=== PATIENT | male | born 1935 | race Caucasian/White ===

== ENCOUNTER 2019-10-09 11:19 | Emergency (ER) | payer MEDICARE, SELFPAY ==
[2019-10-09 11:33] VITALS: BP 147/77; PULSE 112; RESP 24; TEMP 36.9; O2SAT 93
--- NOTE | 2019-10-09 12:02 | PC.NURSE ---
pt came to desk, stated that he has to leave, cant wait two hours. pt encouraged many times to stay and be evaluated. again refused. pt did say that he would come back this evening, and be prepared to stay if needed left ed waiting room at 1200
--- NOTE | 2019-10-13 12:36 | PM.PNCARD ---
Progress Note: A&P Assessment and Plan (1) Atrial fibrillation with rapid ventricular response: Code(s): I48.91 - Unspecified atrial fibrillation Status: Acute Assessment and Plan: Now that he is more awake and alert he stated that he sees Dr. Mccabe as her regular hvac refrigeration technician, will have a follow-up with him for regular cardiac care (2) CHF (congestive heart failure): Code(s): I50.9 - Heart failure, unspecified Status: Acute Subjective Date/time seen: 10/13/19 12:36 He feels okay today, no more arrhythmia no more shortness of breath leg swelling is better hand swelling is much better. Now that he is more awake and alert he stated that he sees Dr. Mccabe as her regular hvac refrigeration technician, will have a follow-up with him for regular cardiac care
== END 2019-10-09 12:02 | disposition left against medical advice (07) ==
LOC: ANHED 12:14
PROVIDERS: PCP Family Medicine
DX: M79.632 Pain in left forearm (principal)
CPT/HCPCS: 99199

== ENCOUNTER 2019-10-10 09:23 | Inpatient (IN) | payer MEDICARE, SELFPAY ==
[2019-10-10] VITALS (11 sets, daily range): BP systolic 128–154; BP diastolic 69–91; PULSE 85–115; RESP 18–30; TEMP 36–36.7; O2SAT 92–99; BMI 25.0
--- NOTE | 2019-10-10 | ECHO_ITS ---
Patient Info Name: Jonatan Queen Age: 84 years : 1935 Gender: Male Ht: 71 in Wt: 186 lbs BSA: 2.07 m2 HR: 118 bpm BP: 128 / 70 mmHg Technical Quality: Fair Exam Date: 10/10/2019 1:43 PM Exam Location: [facility] Pulmonary Exam Room: ER [facility] Patient Status: Emergency Admit Date: 10/10/2019 Staff Ordering Physician: Alfonso Barrios DO Health Worker: Carol Tarango RDCS Attending Provider: Alfonso Barrios DO Exam Type: CA echo dop color flow w con Study Info Indications - CHF Complete two-dimensional, color flow and Doppler transthoracic echocardiogram is performed with contrast to opacify the left ventrical and to improve the deliniation of the left ventrical endocarial boarders. Contrast/Agitated Saline Contrast/Ag. Saline: Definity Amount: 2.00 ml Administered By: Sosa Newberry RN Existing IV Access: Yes IV Access Condition: patent with no signs of infiltration Summary 1. Left ventricular systolic function is normal, estimated at 60-65%. 2. Right ventricular chamber dimension is mildly enlarged. Left Ventricle Left ventricular chamber dimension is normal. Left ventricular systolic function is normal, estimated at 60-65%. There is no increased left ventricular wall thickness. The left ventricular diastolic function is normal. Right Ventricle Right ventricular chamber dimension is mildly enlarged. Right ventricular systolic function is normal. Left Atria Left atrial chamber dimension is mildly enlarged. Right Atria Right atrial chamber dimension is normal. Aortic Valve The aortic valve is trileaflet. There is no aortic valve stenosis. There is no aortic valve regurgitation. Mitral Valve The mitral valve has normal leaflets. There is no mitral valve stenosis. There is trace mitral valve regurgitation. Tricuspid Valve Mild centrally directed tricuspid valve regurgitation no hepatic venous systolic flow reversal by Doppler interrogation. Pericardium/Pleural The pericardium appears normal. There is no pericardial effusion. Left Ventricular Outflow Tract Name Value Normal LVOT 2D LVOT Diameter 2.02 cm LVOT Doppler LVOT Peak Gradient 5 mmHg LVOT Mean Gradient 3 mmHg LVOT VTI 19.06 cm LVOT VTI/AV VTI Ratio 0.85 LVOT Stroke Volume 61.07 ml LVOT CO 14.42 l/min LVOT CI 6.98 L/min/m2 Pulmonic Valve Name Value Normal PV Doppler PV Peak Gradient 4 mmHg Mitral Valve Name Value Normal
--- NOTE | ~2019-10-10 | XR_ITS ---
EXAMINATION: XR hand LT min 3V DATE: 10/10/2019 10:21 INDICATION: Left hand pain. TECHNIQUE: 3 views of left hand were obtained. COMPARISON: None. FINDINGS: Bone alignment is normal. No fracture. There is mild osteoarthritis of second and third met acarpophalangeal joints, first interphalangeal joint, and fourth distal interphalangeal joint. IMPRESSION: 1. Mild polyarticular osteoarthritis. Reviewed, dictated and finalized at location A. ZZA DEVELOPER
--- NOTE | ~2019-10-10 | XR_ITS ---
XR chest 2V DATE: 10/10/2019 10:21 INDICATION: Shortness of breath. Left hand pain and swelling. TECHNIQUE: AP and lateral views COMPARISON: 03/15/2016 2 view chest FINDINGS: Mild right pleural effusion and slight left pleural effusion. There is right basilar infilt rate and/or atelectasis. Bilateral hyperinflation. There is mild prominence of the fissures. Mild cardiomegaly. There is aortic calcification and minimal unfolding. These osteopenia. Degenerative spurring of the thoracic spine. IMPRESSION: Mild cardiomegaly, mild congestive changes Right basilar infiltrate and/atelectasis Aortic atherosclerosis Diffuse osteopenia. Degenerative change of the thoracic spine. Reviewed, dictated and finalized at location B. MOTIVE PARTS PERSON
--- NOTE | 2019-10-10 09:50 | ECG_ITS ---
Measurements Intervals [place] Rate: 136 P: [place]: 0 QRS: -6 QRSD: 100 T: 14 QT: 305 QTc: 460 Interpretive Statements ATRIAL FIBRILLATION WITH RAPID VENTRICULAR RESPONSE BORDERLINE R WAVE PROGRESSION, ANTERIOR LEADS ABNORMAL ECG Electronically Signed On 10-10-2019 11:54:27 FINANCIAL PLANNER by Zeke Stratton D.O.
[2019-10-10 10:00] LABS: Basophils Percent Auto 0.2 % (0.2-1.2); Eosinophils Percent Auto 0.1 % (0-4.4); Hemoglobin 16.6 g/dL (14.0-18.0); Immature Granulocyte Absolute 0.27 K/mm3 (0.00-0.031); Immature Granulocyte Percent A 1.8 % (0-0.5); Lymphocytes Absolute Auto 0.64 K/mm3 (0.9-3.2); Lymphocytes Percent Auto 4.3 % (18.3-44.2); Mean Corpuscular HGB Conc 33.9 g/dl (32-36); Mean Corpuscular Hemoglobin 33.1 pg (26-34); Mean Corpuscular Volume 97.6 fl (80-100); Mean Platelet Volume 11.4 fl (7.4-10.4); Monocytes Absolute Auto 0.9 K/mm3 (0.1-0.6); Monocytes Percent Auto 6.2 % (2.6-8.5); Neutrophils Absolute Auto 12.9 K/mm3 (1.3-6.7); Neutrophils Percent Auto 87.4 % (45.5-73.1); Platelet Count Result 196 k/mm3 (150-375); Red Blood Count 5.02 M/mm3 (4.6-6.20); Red Cell Distribution Width 16.1 % (11.5-14.5); White Blood Count 14.8 K/mm3 (4.5-10.0)
[2019-10-10 10:12] LABS: Blood Urea Nitrogen 70 mg/dL (9-20); Calcium 9.1 mg/dL (8.4-10.2); Carbon Dioxide 28 mmol/L (22-30); Chloride 92 mmol/L (98-107); Estimated CRCL calculation 29 ml/min; Estimated Glomerular Filt Rate 34; Glucose 145 mg/dL (75-110); Potassium 3.8 mmol/L (3.4-5.0); Sodium 137 mmol/L (137-145)
--- NOTE | 2019-10-10 11:06 | ED.GENADULT ---
HPI - General Adult General Chief complaint: Unspecified Stated complaint: left hand pain Time Seen by Provider: 10/10/19 11:00 Source: patient Mode of arrival: ambulatory Limitations: no limitations History of Present Illness HPI narrative: Pt is an 84 y/o male who presents to the ED with c/o lt arm burning pain x5 days. He reports associated swelling and a rash down his lt arm. Pt also notes that he is SOB and states that he was D/C from [facility] on Sunday (1 week ago) after being admitted for 5 days for pneumonia. He notes that he was on Abx while he was admitted. complaint: left arm pain Onset (ago): day(s) (5) Location: left and upper extremity Quality: burning Pain Consistency: constant Associated symptoms: shortness of breath and other (lt arm swelling) Related Data Allergies Allergy/AdvReac Type Severity Reaction Status Date / Time No Known Drug Allergies Allergy Unknown Verified 08/06/18 12:54 Review of Systems Review of Systems: All systems reviewed & are unremarkable except as noted in HPI and below Respiratory: Respiratory: Reports dyspnea Musculoskeletal: Musculoskeletal: Reports other (lt arm pain, lt arm swelling) [facility] Past Medical History Medical History (Updated 10/10/19 @ 16:48 by Alfonso Barrios DO) Arm fracture GERD (gastroesophageal reflux disease) HLD (hyperlipidemia) HTN (hypertension) Rectal polyp Shingles Sleep apnea Surgical History Surgical History (Updated 10/10/19 @ 11:16 by Curtis Pritchett) H/O bilateral cataract extraction H/O heart artery stent History of back surgery History of cardiac catheterization Hx of cholecystectomy Family History Family History (Updated 08/12/18 @ 15:24 by DOCTOR UNKNOWN) Father Family history of lung disease, Onset Age: 66 Other Family history of osteoporosis Social History Social History Smoking status: Never smoker Alcohol intake: never Exam Narrative: Exam Narrative: APPEARANCE: No acute distress, nontoxic, resting in bed EYES: EOMI HEENT: Normocephalic, atraumatic, OMM RESPIRATORY: Mild respiratory distress coarse breath sounds at the bilateral lung cowart CARDIOVASCULAR: Irregular and tachycardic without murmurs rubs or gallops. ABDOMINAL: Soft, nontender, nondistended, no rebound or guarding MUSCULOSKELETAl: Moves all extremities. No clubbing, cyanosis or edema. NEURO: Awake and alert. Following commands, speech normal, no focal deficits SKIN:: Warm, dry. Rash that begins on the lateral shoulder and travels down the lateral arm to the first and second digits with vesicles seen on the first and second digits encrusted lesions more proximal in the arm consistent with varicella-zoster and region of dermatome C6 PSYCHIATRIC: Normal affect/mood, Course Course Emergency Course: Discussed with patient and family results of workup and diagnosis. Discussed need for admission. Patient and family understand and agree to current treatment plan Consultations Consultation #1: Discussed case with Dr. Parrish, the showroom sales assistant. Recommends ordering an echo and will consult Date: 10/10/19 Time: 13:03 Consultation #2: Discussed case with TRAVIS Harris for the hospitalist. Accepted admission. Date: 10/10/19 Time: 13:10 Vital Signs Vital signs: Vital Signs Temperature 98.0 F 10/10/19 09:42 Pulse Rate 115 H 10/10/19 09:42 Respiratory Rate 26 H 10/10/19 09:42 Blood Pressure 128/70 10/10/19 09:42 Pulse Oximetry 92 10/10/19 09:42 Temperature 98.0 F 10/10/19 09:42 Pulse Rate 100 10/10/19 16:28 Respiratory Rate 20 10/10/19 16:28 Blood Pressure 135/82 10/10/19 16:28 Pulse Oximetry 98 10/10/19 16:28 Medical Decision Making Vital Signs Vital Signs: Vital Signs Temperature 98.0 F 10/10/19 09:42 Pulse Rate 115 H 10/10/19 09:42 Respiratory Rate 26 H 10/10/19 09:42 Blood Pressure 128/70 10/10/19 09:42 Pulse Oximetry
[2019-10-10] MEDS: IPRATROPIUM BR 0.02% INH SOLN 0.5 MG/2.5 ML VIAL INHALATION (11:25)
[2019-10-10] MEDS: ALBUTEROL SULFATE NEB 2.5 MG/0.5 ML INH 5 MG INHALATION (11:25)
[2019-10-10 11:48] LABS: Alveolar/Arterial O2 Gradient 6.2 mmHg; Fractional Inspired Oxygen 21 %; HCO3 ABG 21.1 mEq/l (22.0-26.0); Oxygen Content ABG 22.4 %vol (16.0-22.0); Oxygen Saturation ABG 99.3 % (95.0-100.0); PO2 ABG 125.6 mmHg (80.0-100.0); PO2 FiO2 Ratio Arterial Blood 5.98 %; Total Hemoglobin 16.5 g/dL (12.0-18.0)
[2019-10-10 11:51] LABS: Device ROOM AIR; Modified Allen's Test Pass; Site Drawn RIGHT RADIAL; pH ABG 7.766 (7.350-7.450)
[2019-10-10 11:58] LABS: INR 2.7; Partial Thromboplastin Time 27.3 SECONDS (22.3-36.8); Prothrombin Time 28.3 Seconds (11.1-14.7)
[2019-10-10 11:59] LABS: Lactic Acid Reflex 6.1 mmol/L (0.7-2.1)
[2019-10-10 12:11] LABS: NT Pro B Type Natriuretic Pept 3460 PG/ML (5-100); Troponin I 0.035 ng/mL (0.000-0.034)
[2019-10-10] MEDS: SODIUM CHLORIDE 0.9% IV 1,000 ML 999 ML IV CONT (12:30)
[2019-10-10 13:31] LABS: Salicylate < 1.0 mg/dL (2-20)
[2019-10-10 14:43] LABS: Reflex Lactic Acid Yes or No Add Lactic
[2019-10-10 15:23] LABS: Add Urine Microscopic? YES; Appearance Urine Clear (Clear); Bilirubin Urine Negative (Negative); Blood Urine 1+ (Negative); Color Urine Yellow (Yellow); Glucose Urine UA Negative (Negative); Ketones Urine Negative (Negative); Leukocyte Esterase Ur Negative LEU/UL (Negative); Mucus Urine Rare /lpf; Nitrate Urine Negative (Negative); Protein Urine 1+ mg/dL (Negative); RBC Urine 0-2 /hpf (0-2); Specific Grav Ur 1.018 (1.001-1.035); WBC Urine 0-3 /hpf
[2019-10-10 15:56] LABS: Lactic Acid 3.3 mmol/L (0.7-2.1)
--- NOTE | 2019-10-10 15:58 | PM.CNCAR ---
Assessment and Plan Assessment and plan (1) A-fib: Code(s): I48.91 - Unspecified atrial fibrillation Status: Acute Assessment and Plan: Patient appears to be in AFib [place] RVR. His cattle Cardizem drip which will continue. He needs to be on heparin drip for anticoagulation. She will benefit from ECHO to evaluate LV function. Monitor on telemetry (2) HLD (hyperlipidemia): Code(s): E78.5 - Hyperlipidemia, unspecified Status: Acute Assessment and Plan: Will check lipids. Continue statins. (3) HTN (hypertension): Code(s): I10 - Essential (primary) hypertension Status: Acute Assessment and Plan: Current relatively well controlled. Continue medications (4) SOB (shortness of breath) on exertion: Code(s): R06.02 - Shortness of breath Status: Acute Assessment and Plan: Patient's history are COPD and a recent history of pneumonia. Management per primary care doctor. Thank you for consult will follow up History of Present Illness History of Present Illness Consult date/time: 10/10/19 15:58 Mr. Carrasquillo is a pleasant 84 WM with past medical history of hypertension hyperlipidemia, GERD who presented to [facility] ER complaining full left hand pain. patient claims that he was diagnosed with herpes zoster and she has pain of his fingers of the left hand. While in the ER patient stated that he does have shortness of breath for a long period of time. He was diagnosed with pneumonia about 2 weeks ago at [facility] was treated with antibiotics for that reason. Patient does follow with fertilizing machine operator for that reason. He denies any chest pain no palpitation dizziness or syncopal episode no lower extremity edema. Patient was seen and examined while in the ER. Case was discussed with ER physician and patient's nurse. Reason For Visit: left hand pain Review of Systems Review of Systems: All systems reviewed & are unremarkable except as noted in HPI and below Constitutional: Constitutional: Reports as per HPI Eyes: Eyes: Reports as per HPI ENT: Reports system reviewed and no additional complaints, except as documented and Reports as per HPI Cardiovascular: Cardiovascular: Reports as per HPI Respiratory: Respiratory: Reports as per HPI Gastrointestinal: Gastrointestinal: Reports as per HPI Genitourinary: Genitourinary: Reports as per HPI Musculoskeletal: Musculoskeletal: Reports as per HPI [facility] Past Medical History Medical History (Updated 10/10/19 @ 16:05 by Hayden Frausto MD) Arm fracture GERD (gastroesophageal reflux disease) HLD (hyperlipidemia) HTN (hypertension) Rectal polyp Shingles Sleep apnea Surgical History Surgical History (Updated 10/10/19 @ 11:16 by Curtis Pritchett) H/O bilateral cataract extraction H/O heart artery stent History of back surgery History of cardiac catheterization Hx of cholecystectomy Family History Family History (Updated 08/12/18 @ 15:24 by DOCTOR UNKNOWN) Father Family history of lung disease, Onset Age: 66 Other Family history of osteoporosis Social History Social History Smoking status: Never smoker Alcohol intake: never Meds Home Medications and Allergies Allergies Allergy/AdvReac Type Severity Reaction Status Date / Time No Known Drug Allergies Allergy Unknown Verified 08/06/18 12:54 Vital Signs Vital Signs - 24 hr 10/10/19 09:42 10/10/19 11:35 10/10/19 11:50 Temperature 36.7 C Pulse Rate 115 H 110 H 115 H Respiratory Rate 26 H 30 H 30 H Blood Pressure 128/70 Pulse Oximetry 92 Exam Const: General: alert and awake; No acute distress HENMT: Head: normal to inspection and atraumatic Ears: hearing grossly normal bilaterally Face and sinus: normal facial exam Eyes: General: appearance normal, both eyes and all related structures Pupils: Equal, round and reactive pupils present EOM
[2019-10-10] MEDS: ACYCLOVIR 400 MG TABLET 800 MG PO ×2 (16:30→21:03)
[2019-10-10 16:53] LABS: Troponin I 0.022 ng/mL (0.000-0.034)
[2019-10-10 18:16] LABS: Troponin I 0.023 ng/mL (0.000-0.034)
[2019-10-10] MEDS: PERFLUTREN LIPID MICROSPHERES 1.5 ML VIAL DILUTED TO 10 ML TOTAL VOLUME (18:25)
[2019-10-10] MEDS: SODIUM CHLORIDE 0.9% IV 1,000 ML 125 ML IV CONT (18:34)
--- NOTE | 2019-10-10 18:51 | ADMGEN ---
This patient, Jonatan Queen, was admitted to IMU Room 231-01 at 1647. Patient/family oriented to hospital policies and general routines including ID bracelet, bed and alarms, visiting hours, pain management, procedures, bathroom and other care routines, personal items, smoking policy, room service/diet, and visiting hours. Valuables list has been completed. Information on how to activate the Rapid Response Team has been discussed. Patient/Family are encouraged to report perceived risks to care and to ask questions if they do not understand what they are told or what they should do.
--- NOTE | 2019-10-10 20:43 | PM.IMHP ---
H&P: HPI History of Present Illness Chief complaint: Left arm pain, shortness of breath Narrative: Jonatan Queen is a 84 year old male with a past medical history of chronic atrial fibrillation, COPD and chronic kidney disease who presented to the ER from home due to left arm pain and swelling as well as worsening shortness of breath. The patient reports that he was at [facility] one week ago after being admitted for 5 days for COPD. He reports he actually did not have pneumonia that was documented in the ER note. He states he did not receive antibiotics at [facility]. He reported he has been persistently short of breath since his return home. He has not been having palpitations or racing of his heart but when he arrived to the ER in AFib with rapid ventricular response with a heart rate as high as 136 documented on EKG. He denies any chest pain. He has been having a nonproductive cough. He denies any fevers, chills, nausea, vomiting. He has noticed a rash to the back of his left arm that is burning and aching in nature with a pain intensity that moderate to severe but is now improved and is only minor. He has noticed increased swelling in the left hand and arm. He reports that the pains and swelling in his arm started 5 days ago. He denies any dysuria changes in urinary frequency or changes in bowel habits. He is on chronic anticoagulation with Coumadin but denies any hematuria hematochezia or melena. He denies having missed any doses of his home medications. He reports that his mouth feels as if it has sand paper and it. Review of Systems Review of Systems: Narrative: Except as documented in the HPI, all other systems were reviewed and are negative. [facility] Past Medical History Medical History (Updated 10/11/19 @ 00:57 by Destiny Paulson DO) Arm fracture In childhood Atrial fibrillation On chronic anticoagulation with Coumadin echocardiogram June 2017 demonstrating EF of 60-65%, moderate biatrial enlargement, normal RVSP of 32, mild mitral, pulmonic and tricuspid regurgitation Chronic kidney disease, stage III (moderate) With baseline creatinine I.3-1.4 COPD with emphysema PFTs June 2017 demonstrated mild to moderate obstructive ventilatory defect without bronchodilator response and mildly decreased DLCO Dyslipidemia Esophageal web Noted on EGD June [address] Lomas Essential hypertension GERD (gastroesophageal reflux disease) Obstructive sleep apnea Polysomnogram 07/2017 with CPAP of 7 non adherent to CPAP therapy Shingles Surgical History Surgical History (Updated 10/10/19 @ 20:58 by Destiny Paulson DO) H/O colonoscopy with polypectomy H/O heart artery stent History of back surgery Lumbar spine History of cardiac catheterization Hx of cholecystectomy Hx of nasal polypectomy With bilateral anterior and posterior ethmoid and maxillary antrostomy June [address] Dr. Mayfield Status post cataract extraction of both eyes with insertion of intraocular lens Family History Family History Father Lung disease Mother Osteoporosis Social History Social History (Updated 10/11/19 @ 00:52 by Destiny Paulson DO) Social History: Code status: DNR per patient request Primary care physician: Dr. Lyle Collazo Smoking packs per day: 1 Smoking cigarettes per day: 20.0 Years smoked: 50 Smoking pack-years: 50.00 Smoking status: Former smoker Tobacco type: cigarettes Alcohol intake: current Drinks per week: 14 Alcohol use details: He reports that he drinks a couple of alcoholic beverages every couple of days. Substance use: never Living arrangements: alone Additional living arrangements comments: He lives alone and is not . Occupation/Education: retired Gender identity (if verbalized by the patient): Male Spiritual care concerns: No Agree to blood products: Yes
[2019-10-10 22:06] LABS: Blood Urea Nitrogen 60 mg/dL (9-20); Calcium 8.1 mg/dL (8.4-10.2); Carbon Dioxide 29 mmol/L (22-30); Chloride 97 mmol/L (98-107); Estimated CRCL calculation 34 ml/min; Estimated Glomerular Filt Rate 41; Glucose 110 mg/dL (75-110); Magnesium 1.9 mg/dL (1.6-2.3); Potassium 4.1 mmol/L (3.4-5.0); Sodium 133 mmol/L (137-145)
[2019-10-10] MEDS: METOPROLOL TARTRATE 50 MG TAB PO (23:59)
[2019-10-10] MEDS: MONTELUKAST SODIUM 10 MG TABLET PO (23:59)
[2019-10-11] VITALS (23 sets, daily range): BP systolic 101–148; BP diastolic 70–81; PULSE 64–107; RESP 18–22; TEMP 36.1–36.9; O2SAT 93–100
[2019-10-11] MEDS: SODIUM CHLORIDE 0.9% IV 1,000 ML 125 ML IV CONT ×2 (03:28→12:22)
[2019-10-11 05:20] LABS: Basophils Percent Auto 0.2 % (0.2-1.2); Eosinophils Absolute Auto 0.1 K/mm3 (0-0.3); Eosinophils Percent Auto 0.6 % (0-4.4); Hematocrit 44.3 % (42.0-52.0); Hemoglobin 14.6 g/dL (14.0-18.0); Immature Granulocyte Absolute 0.33 K/mm3 (0.00-0.031); Immature Granulocyte Percent A 2.7 % (0-0.5); Lymphocytes Absolute Auto 0.52 K/mm3 (0.9-3.2); Lymphocytes Percent Auto 4.2 % (18.3-44.2); Mean Corpuscular Hemoglobin 32.7 pg (26-34); Mean Corpuscular Volume 99.1 fl (80-100); Mean Platelet Volume 11.6 fl (7.4-10.4); Neutrophils Absolute Auto 10.5 K/mm3 (1.3-6.7); Neutrophils Percent Auto 84.3 % (45.5-73.1); Nucleated Red Blood Cells Perc 0.2 % (0.0-0.2); Platelet Count Result 170 k/mm3 (150-375); Red Blood Count 4.47 M/mm3 (4.6-6.20); Red Cell Distribution Width 16.2 % (11.5-14.5); White Blood Count 12.4 K/mm3 (4.5-10.0)
[2019-10-11 05:31] LABS: Alanine Aminotransferase 54 U/L (4-50); Albumin Level 2.7 g/dL (3.5-5.1); Alkaline Phosphatase 56 U/L (38-126); Aspartate Amino Transferase 48 U/L (17-59); Bilirubin,Total 0.9 mg/dL (0.2-1.3); Blood Urea Nitrogen 56 mg/dL (9-20); Calcium 7.9 mg/dL (8.4-10.2); Carbon Dioxide 31 mmol/L (22-30); Chloride 99 mmol/L (98-107); Estimated CRCL calculation 34 ml/min; Estimated Glomerular Filt Rate 41; Glucose 104 mg/dL (75-110); Potassium 4.3 mmol/L (3.4-5.0); Sodium 135 mmol/L (137-145)
[2019-10-11] MEDS: GABAPENTIN 100 MG CAPSULE PO ×4 (08:50→16:11)
[2019-10-11] MEDS: ESCITALOPRAM OXALATE 10 MG TABLET PO ×2 (08:51)
[2019-10-11] MEDS: METOPROLOL TARTRATE 50 MG TAB PO ×2 (08:51→20:55)
[2019-10-11] MEDS: ATORVASTATIN 40 MG TABLET PO ×2 (08:51)
[2019-10-11] MEDS: ACYCLOVIR 400 MG TABLET 800 MG PO ×5 (08:52→20:55)
[2019-10-11] MEDS: IPRATROPIUM BR 0.02% INH SOLN 0.5 MG/2.5 ML VIAL INHALATION ×3 (09:41→21:33)
[2019-10-11] MEDS: ALBUTEROL SULFATE NEB 2.5 MG/0.5 ML INH INHALATION ×3 (09:41→21:34)
--- NOTE | 2019-10-11 11:52 | PM.PNCARD ---
Progress Note: A&P Assessment and Plan (1) A-fib: Code(s): I48.91 - Unspecified atrial fibrillation Status: Deleted Assessment and Plan: Patient appears to be in AFib rate now is well controlled He needs to be on heparin drip for anticoagulation. Will start on Xarelto 20 mg p.o. daily, echocardiogram showed normal left ventricular systolic function Monitor on telemetry (2) HLD (hyperlipidemia): Code(s): E78.5 - Hyperlipidemia, unspecified Status: Inactive Assessment and Plan: Will check lipids. Continue statins. (3) HTN (hypertension): Code(s): I10 - Essential (primary) hypertension Status: Inactive Assessment and Plan: Current relatively well controlled. Continue medications (4) SOB (shortness of breath) on exertion: Code(s): R06.02 - Shortness of breath Status: Resolved Assessment and Plan: Patient's history are COPD and a recent history of pneumonia. Management per primary care doctor. Thank you for consult will follow up Subjective Date/time seen: 10/11/19 11:52 He feels better today, no chest pain, shortness breath is better, no dizziness. Rate is well controlled now Exam Const: General: alert and awake; No acute distress HENMT: Head: normal to inspection and atraumatic Ears: hearing grossly normal bilaterally Face and sinus: normal facial exam Eyes: General: appearance normal, both eyes and all related structures Pupils: Equal, round and reactive pupils present EOM: EOMs intact bilaterally Neck: Neck: normal visual inspection and no JVD Chest: Chest palpation & inspection: normal inspection of the chest (Decreased breathing sound bilaterally noted) Resp: Effort & Inspection: normal respiratory effort and no respiratory distress Auscultation: clear to auscultation bilaterally Cardio: Jugular venous distension: JVD Rhythm: abnormal rhythm irregularly irregular Heart sounds: S1 normal heart sound present and S2 normal heart sound present GI: Inspection: normal to inspection Auscultation: normal bowel sounds Skin: General skin exam: normal color Neuro: Cranial nerves: Yes Equal, round and reactive pupils present Extrem: General: normal to inspection and no clubbing, cyanosis or edema Objective Data Vital Signs Vital Signs: Vital Signs - 24 hr 10/10/19 16:28 10/10/19 16:57 10/10/19 18:00 Temperature Pulse Rate 100 115 H 100 Respiratory Rate 20 Blood Pressure 135/82 Pulse Oximetry 98 98 10/10/19 18:16 10/10/19 20:00 10/10/19 22:00 Temperature 36.0 C L 36.7 C Pulse Rate 107 H 98 85 Respiratory Rate 22 H 18 Blood Pressure 138/91 H 142/69 H Pulse Oximetry 96 96 10/10/19 23:50 10/10/19 23:59 10/11/19 00:00 Temperature 36.4 C L Pulse Rate 103 H 103 H 107 H Respiratory Rate 20 20 Blood Pressure 154/85 H Pulse Oximetry 99 99 10/11/19 02:00 10/11/19 04:00 10/11/19 05:54 Temperature 36.2 C L Pulse Rate 64 74 80 Respiratory Rate 18 Blood Pressure 101/78 Pulse Oximetry 100 10/11/19 08:00 10/11/19 08:17 10/11/19 08:51 Temperature 36.2 C L Pulse Rate 79 84 67 Respiratory Rate 22 H Blood Pressure 138/70 Pulse Oximetry 97 10/11/19 09:44 10/11/19 10:00 Temperature Pulse Rate 78 73 Respiratory Rate 20 Blood Pressure Pulse Oximetry Intake/Output Intake/Output: Intake & Output 10/08/19 10/09/19 10/10/19 10/11/19 23:59 23:59 23:59 23:59 Intake Total 1250 1360 Output Total 140 600 Balance 1110 760 Meds/Results Medications: Active Medications Generic Name Dose Route Start Last Admin Trade Name Freq PRN Reason Stop Dose Admin Hydrocodone Bitart/Acetaminophen 1 tab 10/10/19 22:39 10/11/19 00:07 Farrell 5-325 Mg PO 1 tab Q4H PRN Administration Pain Rated 4-6 Acyclovir 800 mg 10/10/19 21:00 10/11/19 08:52 Zovirax Po PO 800 mg 5 TIMES DAILY AKIN Administration Albuterol 2.5 mg 10/11/19 02:00
[2019-10-11] MEDS: WARFARIN (*PBKC) 2 MG TABLET PO (16:12)
--- NOTE | 2019-10-11 18:01 | PM.IMPN ---
Progress Note: A&P Assessment and Plan (1) Sepsis: Code(s): A41.9 - Sepsis, unspecified organism Status: Acute Assessment and Plan: Severe sepsis/septic shock sepsis criteria met on admission with tachycardia, leukocytosis and lactic acidosis however patient blood pressures remained stable. He received appropriate fluid resuscitation. LA level has normalized and tachycardia has resolved. Blood cultures are NGTD. Possibly related to the pneumonia +/- zoster. Symptoms resolving. Stop IVF. (2) Community acquired pneumonia: Code(s): J18.9 - Pneumonia, unspecified organism Status: Acute Assessment and Plan: Recent community-acquired pneumonia. Old records requested. CXR showing right basilar infiltrate with congestive changes. WBC better. Clinically patient feeling better. Continue Rocephin and azithromycin. Continue neb treatments. (3) Atrial fibrillation with rapid ventricular response: Code(s): I48.91 - Unspecified atrial fibrillation Status: Acute Assessment and Plan: Patietn with AFib/RVR. HR better controlled. Patient admitted to IMU on a Diltiazem drip. Able to stop Dilt this morning. Currently on Lopressor. INR therpaeutic. Appreciate Cardiology input. Continue daily INR. Continue tele. Stop IVF. (4) Varicella zoster: Code(s): B02.9 - Zoster without complications; B01.9 - Varicella without complication Status: Acute Assessment and Plan: Patient has been initiated on acyclovir 800 mg 5 times a day. Neurontin 100 mg t.i.d. also begun. [place] available as well for pain. (5) Acute on chronic renal failure: Code(s): N17.9 - Acute kidney failure, unspecified; N18.9 - Chronic kidney disease, unspecified Status: Acute Assessment and Plan: Cr baseline 1.3 in April. Cr was 1.9 on admission. With IVF, the Cr dropped to 1.6 today. UOP better. Stop IVF and monitor. (6) Lactic acidosis: Code(s): E87.2 - Acidosis Status: Acute Assessment and Plan: The patient received 2 L of isotonic fluids in the ER and his lactic acidosis has improved from 6.1 down to 2.0. As above Additional Plan Marked metabolic alkalosis - Salicylate level negative. Doubt PE given therapeutic INR. Anxiety? Appears improved. Monitor clinically. Weakness - will start PT/OT Subjective Date/time seen: 10/11/19 18:01 Interval history: 84yo male here for SOB and left arm pain. Patietn feels better today. Left arm pain controlled. He denies CP or palpitations today. The SOB better today. Eating okay. He is not sure if he had the Varicella vaccine. Minimal cough. Exam Narrative: Exam Narrative: Gen - NARD lying semi-recumbent in bed Chest - decreased BS R>L bases o/w distant BS. nml RR. No conversational dyspnea CV - irregularly irregular; Tele showing AFib with pauses Abd - soft, ND/NT, +BS Ext - no pedal edema Neuro - AOx4 Psych - nml mood and affect Skin - Blistering violaceous rash to the left upper extremity and in the distribution of C6 dermatome Objective Data Vital Signs Vital Signs: Vital Signs - 24 hr 10/10/19 18:16 10/10/19 20:00 10/10/19 22:00 Temperature 96.8 F L 98.0 F Pulse Rate 107 H 98 85 Respiratory Rate 22 H 18 Blood Pressure 138/91 H 142/69 H Pulse Oximetry 96 96 10/10/19 23:50 10/10/19 23:59 10/11/19 00:00 Temperature 97.5 F L Pulse Rate 103 H 103 H 107 H Respiratory Rate 20 20 Blood Pressure 154/85 H Pulse Oximetry 99 99 10/11/19 02:00 10/11/19 04:00 10/11/19 05:54 Temperature 97.2 F L Pulse Rate 64 74 80 Respiratory Rate 18 Blood Pressure 101/78 Pulse Oximetry 100 10/11/19 08:00 10/11/19 08:17 10/11/19 08:51 Temperature 97.2 F L Pulse Rate 79 84 67 Respiratory Rate 22 H Blood Pressure 138/70 Pulse Oximetry 97 10/11/19 09:44 10/11/19 10:00 10/11/19 12:00 Temperature Pulse Rate 78 73 79 Respiratory Rate
[2019-10-11] MEDS: MONTELUKAST SODIUM 10 MG TABLET PO (20:55)
[2019-10-11] MEDS: MELATONIN 3 MG TABLET PO ×2 (20:55)
[2019-10-12] VITALS (23 sets, daily range): BP systolic 106–169; BP diastolic 58–108; PULSE 77–117; RESP 18–22; TEMP 36.1–37.5; O2SAT 90–99
[2019-10-12] MEDS: ALBUTEROL SULFATE NEB 2.5 MG/0.5 ML INH INHALATION ×3 (01:37→15:12)
[2019-10-12] MEDS: IPRATROPIUM BR 0.02% INH SOLN 0.5 MG/2.5 ML VIAL INHALATION ×3 (01:38→15:12)
[2019-10-12 05:08] LABS: Mean Corpuscular HGB Conc 33.3 g/dl (32-36); Mean Corpuscular Hemoglobin 32.9 pg (26-34); Mean Corpuscular Volume 98.6 fl (80-100); Platelet Count Result 161 k/mm3 (150-375); Red Blood Count 4.87 M/mm3 (4.6-6.20); Red Cell Distribution Width 16.2 % (11.5-14.5); White Blood Count 11.6 K/mm3 (4.5-10.0)
[2019-10-12 05:17] LABS: Prothrombin Time 30.7 Seconds (11.1-14.7)
[2019-10-12 05:28] LABS: Alanine Aminotransferase 66 U/L (4-50); Albumin Level 2.9 g/dL (3.5-5.1); Alkaline Phosphatase 66 U/L (38-126); Aspartate Amino Transferase 56 U/L (17-59); Bilirubin,Total 1.2 mg/dL (0.2-1.3); Blood Urea Nitrogen 49 mg/dL (9-20); Calcium 8.1 mg/dL (8.4-10.2); Carbon Dioxide 30 mmol/L (22-30); Chloride 100 mmol/L (98-107); Estimated CRCL calculation 41 ml/min; Estimated Glomerular Filt Rate 53; Glucose 113 mg/dL (75-110); Phosphorus 2.8 mg/dL (2.5-4.5); Potassium 4.4 mmol/L (3.4-5.0); Sodium 135 mmol/L (137-145)
[2019-10-12] MEDS: METOPROLOL TARTRATE 50 MG TAB PO ×2 (09:38→20:27)
[2019-10-12] MEDS: ESCITALOPRAM OXALATE 10 MG TABLET PO (09:38)
[2019-10-12] MEDS: ACYCLOVIR 400 MG TABLET 800 MG PO ×5 (09:38→20:27)
[2019-10-12] MEDS: ATORVASTATIN 40 MG TABLET PO (09:38)
[2019-10-12] MEDS: GABAPENTIN 100 MG CAPSULE PO ×3 (09:40→17:34)
--- NOTE | 2019-10-12 11:19 | PM.PNCARD ---
Progress Note: A&P Assessment and Plan (1) A-fib: Code(s): I48.91 - Unspecified atrial fibrillation Status: Deleted Assessment and Plan: Patient appears to be in AFib rate now is well controlled He is on Coumadin, INR subtherapeutic (2) HLD (hyperlipidemia): Code(s): E78.5 - Hyperlipidemia, unspecified Status: Inactive Assessment and Plan: Will check lipids. Continue statins. (3) HTN (hypertension): Code(s): I10 - Essential (primary) hypertension Status: Inactive Assessment and Plan: Current relatively well controlled. Continue medications (4) SOB (shortness of breath) on exertion: Code(s): R06.02 - Shortness of breath Status: Resolved Assessment and Plan: Patient's history are COPD and a recent history of pneumonia. Management per primary care doctor. Thank you for consult will follow up Subjective Date/time seen: 10/12/19 11:19 Feels slightly better today, still with AFib rate is up a little bit today but no palpitation no dizziness Interval history: 84yo male here for SOB and left arm pain. Patietn feels better today. Left arm pain controlled. He denies CP or palpitations today. The SOB better today. Eating okay. He is not sure if he had the Varicella vaccine. Minimal cough. Exam Const: General: alert and awake; No acute distress HENMT: Head: normal to inspection and atraumatic Ears: hearing grossly normal bilaterally Face and sinus: normal facial exam Eyes: General: appearance normal, both eyes and all related structures Pupils: Equal, round and reactive pupils present EOM: EOMs intact bilaterally Neck: Neck: normal visual inspection and no JVD Chest: Chest palpation & inspection: normal inspection of the chest (Decreased breathing sound bilaterally noted) Resp: Effort & Inspection: normal respiratory effort and no respiratory distress Auscultation: clear to auscultation bilaterally Cardio: Jugular venous distension: JVD Rate: regular rate Rhythm: abnormal rhythm irregularly irregular Heart sounds: S1 normal heart sound present and S2 normal heart sound present GI: Inspection: normal to inspection Auscultation: normal bowel sounds Skin: General skin exam: normal color Neuro: Cranial nerves: Yes Equal, round and reactive pupils present Extrem: General: normal to inspection and no clubbing, cyanosis or edema Objective Data Vital Signs Vital Signs: Vital Signs - 24 hr 10/11/19 12:00 10/11/19 13:17 10/11/19 14:00 Temperature 36.1 C L Pulse Rate 79 81 78 Respiratory Rate 20 Blood Pressure 140/77 Pulse Oximetry 99 10/11/19 14:32 10/11/19 14:41 10/11/19 16:00 Temperature Pulse Rate 79 74 75 Respiratory Rate 20 20 Blood Pressure Pulse Oximetry 10/11/19 16:44 10/11/19 18:00 10/11/19 19:21 Temperature 36.2 C L 36.9 C Pulse Rate 87 78 86 Respiratory Rate 22 H 18 Blood Pressure 148/81 H 145/77 H Pulse Oximetry 98 93 10/11/19 20:00 10/11/19 20:55 10/11/19 21:34 Temperature Pulse Rate 87 90 79 Respiratory Rate 18 18 Blood Pressure Pulse Oximetry 93 10/11/19 21:44 10/11/19 22:00 10/12/19 00:00 Temperature 36.7 C Pulse Rate 82 77 82 Respiratory Rate 18 18 Blood Pressure 146/95 H Pulse Oximetry 93 10/12/19 01:38 10/12/19 02:00 10/12/19 04:00 Temperature 36.1 C L Pulse Rate 77 89 103 H Respiratory Rate 18 18 Blood Pressure 155/108 H Pulse Oximetry 93 10/12/19 06:00 10/12/19 08:00 10/12/19 08:53 Temperature 36.2 C L Pulse Rate 97 96 91 Respiratory Rate 22 H Blood Pressure 169/107 H Pulse Oximetry 90 10/12/19 09:02 10/12/19 09:10 10/12/19 09:38 Temperature Pulse Rate 94 104 H 117 H Respiratory Rate 18 18 Blood Pressure Pulse Oximetry 10/12/19 10:00 Temperature Pulse Rate 102 H Respiratory Rate Blood Pressure Pulse Oximetry Intake/Output Intake/Output: Intake & Output 10/09/19 0
--- NOTE | 2019-10-12 15:44 | PM.IMPN ---
Progress Note: A&P Assessment and Plan (1) Sepsis: Code(s): A41.9 - Sepsis, unspecified organism Status: Acute Assessment and Plan: Severe sepsis criteria met on admission with tachycardia, leukocytosis and lactic acidosis however patient blood pressures remained stable. He received appropriate fluid resuscitation. LA level has normalized and tachycardia has resolved. Blood cultures are NGTD. Possibly related to the pneumonia +/- zoster. Symptoms resolving. (2) Community acquired pneumonia: Code(s): J18.9 - Pneumonia, unspecified organism Status: Acute Assessment and Plan: Recent community-acquired pneumonia. Old records requested. CXR showing right basilar infiltrate with congestive changes. WBC continues to trend down. Clinically patient feeling better. Continue Rocephin and azithromycin. Continue neb treatments. (3) Atrial fibrillation with rapid ventricular response: Code(s): I48.91 - Unspecified atrial fibrillation Status: Acute Assessment and Plan: Patient with AFib/RVR. Patient admitted to IMU on a Diltiazem drip. Able to stop Diltiazem. Currently on Lopressor. HR better controlled. INR therpaeutic. Appreciate Cardiology input. Continue daily INR. Continue tele. (4) Varicella zoster: Code(s): B02.9 - Zoster without complications; B01.9 - Varicella without complication Status: Acute Assessment and Plan: Patient has been initiated on acyclovir 800 mg 5 times a day. Neurontin 100 mg t.i.d. also begun. [place] available as well for pain. Encouraged patient to drink free water to prevent renal failure. (5) Acute on chronic renal failure: Code(s): N17.9 - Acute kidney failure, unspecified; N18.9 - Chronic kidney disease, unspecified Status: Acute Assessment and Plan: Cr baseline 1.3 in April. Cr was 1.9 on admission. With IVF, the Cr dropped to 1.3 today. Continue to monitor. (6) Lactic acidosis: Code(s): E87.2 - Acidosis Status: Acute Assessment and Plan: The patient received 2 L of isotonic fluids in the ER and his lactic acidosis has improved from 6.1 down to 2.0. As above Additional Plan Marked metabolic alkalosis - Salicylate level negative. Doubt PE given therapeutic INR. Anxiety? Appears improved. Monitor clinically. Weakness - continue PT/OT Subjective Date/time seen: 10/12/19 15:44 Interval history: 84yo male here for SOB and left arm pain. Decrease in the left arm and hand pain. No CP or SOB. No n/v. No diarrrhea. Has not been up out of bed much. Exam Narrative: Exam Narrative: Gen Emerita SAAVEDRA lying semi-recumbent in bed Chest - decreased BS right base otherwise clear BS. nml RR CV - irregularly irregular; Tele showing AFib Abd - soft, ND/NT, +BS Ext - no pedal edema Neuro - AOx4 but has tangential thought proces Psych - nml mood and affect Skin - Blistering violaceous rash to the left upper extremity and in the distribution of C6 dermatome with decreased edema Objective Data Vital Signs Vital Signs: Vital Signs - 24 hr 10/11/19 16:00 10/11/19 16:44 10/11/19 18:00 Temperature 97.2 F L Pulse Rate 75 87 78 Respiratory Rate 22 H Blood Pressure 148/81 H Pulse Oximetry 98 10/11/19 19:21 10/11/19 20:00 10/11/19 20:55 Temperature 98.4 F Pulse Rate 86 87 90 Respiratory Rate 18 18 Blood Pressure 145/77 H Pulse Oximetry 93 93 10/11/19 21:34 10/11/19 21:44 10/11/19 22:00 Temperature Pulse Rate 79 82 77 Respiratory Rate 18 18 Blood Pressure Pulse Oximetry 10/12/19 00:00 10/12/19 01:38 10/12/19 02:00 Temperature 98.0 F Pulse Rate 82 77 89 Respiratory Rate 18 18 Blood Pressure 146/95 H Pulse Oximetry 93 10/12/19 04:00 10/12/19 06:00 10/12/19 08:00 Temperature 97.0 F L Pulse Rate 103 H 97 96 Respiratory Rate 18 Blood Pressure 155/108 H Pulse Oximetry 93 10/12/19 08:53
[2019-10-12] MEDS: WARFARIN (*PBKC) 2 MG TABLET PO (17:34)
[2019-10-12] MEDS: MONTELUKAST SODIUM 10 MG TABLET PO (20:27)
[2019-10-12] MEDS: MELATONIN 3 MG TABLET PO (20:27)
[2019-10-13] VITALS (7 sets, daily range): BP systolic 153; BP diastolic 81–93; PULSE 94–119; RESP 18; TEMP 36.3–36.5; O2SAT 92–93
[2019-10-13 05:18] LABS: Hematocrit 43.5 % (42.0-52.0); Hemoglobin 14.5 g/dL (14.0-18.0); Mean Corpuscular HGB Conc 33.3 g/dl (32-36); Mean Corpuscular Volume 98.9 fl (80-100); Mean Platelet Volume 11.7 fl (7.4-10.4); Platelet Count Result 146 k/mm3 (150-375); Red Cell Distribution Width 15.9 % (11.5-14.5); White Blood Count 11.9 K/mm3 (4.5-10.0)
[2019-10-13 05:34] LABS: INR 3.3; Prothrombin Time 32.9 Seconds (11.1-14.7)
[2019-10-13 05:45] LABS: Alanine Aminotransferase 61 U/L (4-50); Albumin Level 2.6 g/dL (3.5-5.1); Alkaline Phosphatase 57 U/L (38-126); Aspartate Amino Transferase 52 U/L (17-59); Bilirubin,Total 1.1 mg/dL (0.2-1.3); Blood Urea Nitrogen 43 mg/dL (9-20); Calcium 7.8 mg/dL (8.4-10.2); Carbon Dioxide 29 mmol/L (22-30); Chloride 99 mmol/L (98-107); Estimated CRCL calculation 38 ml/min; Estimated Glomerular Filt Rate 48; Glucose 97 mg/dL (75-110); Potassium 3.8 mmol/L (3.4-5.0); Sodium 134 mmol/L (137-145)
[2019-10-13] MEDS: ALBUTEROL SULFATE NEB 2.5 MG/0.5 ML INH INHALATION (09:43)
[2019-10-13] MEDS: IPRATROPIUM BR 0.02% INH SOLN 0.5 MG/2.5 ML VIAL INHALATION (09:43)
--- NOTE | 2019-10-13 09:52 | PM.DS ---
DS: Diagnosis Admitting Diagnosis Admitting Diagnosis: Unspecified atrial fibrillation Discharge Diagnosis (1) Sepsis: Code(s): A41.9 - Sepsis, unspecified organism Status: Acute Assessment and Plan: Severe sepsis criteria met on admission with tachycardia, leukocytosis and lactic acidosis however patient blood pressures remained stable. He received appropriate fluid resuscitation. LA level has normalized and tachycardia has resolved. Blood cultures are NGTD. Possibly related to the pneumonia +/- zoster. Symptoms resolving. (2) Community acquired pneumonia: Code(s): J18.9 - Pneumonia, unspecified organism Status: Acute Assessment and Plan: Recent community-acquired pneumonia. Old records requested. CXR showing right basilar infiltrate with congestive changes. WBC continues to trend down. Clinically patient feeling better. Continue Rocephin and azithromycin. Continue neb treatments. (3) Atrial fibrillation with rapid ventricular response: Code(s): I48.91 - Unspecified atrial fibrillation Status: Acute Assessment and Plan: Patient with AFib/RVR. Patient admitted to IMU on a Diltiazem drip. Able to stop Diltiazem. Currently on Lopressor. HR better controlled. INR therpaeutic. Appreciate Cardiology input. Continue daily INR. Continue tele. (4) Varicella zoster: Code(s): B02.9 - Zoster without complications; B01.9 - Varicella without complication Status: Acute Assessment and Plan: Patient has been initiated on acyclovir 800 mg 5 times a day. Neurontin 100 mg t.i.d. also begun. [place] available as well for pain. Encouraged patient to drink free water to prevent renal failure. (5) Acute on chronic renal failure: Code(s): N17.9 - Acute kidney failure, unspecified; N18.9 - Chronic kidney disease, unspecified Status: Acute Assessment and Plan: Cr baseline 1.3 in April. Cr was 1.9 on admission. With IVF, the Cr dropped to 1.3 today. Continue to monitor. (6) Lactic acidosis: Code(s): E87.2 - Acidosis Status: Acute Assessment and Plan: The patient received 2 L of isotonic fluids in the ER and his lactic acidosis has improved from 6.1 down to 2.0. As above DS: Summary Hospital Course Reason for hospitalization: 84yo male here for left arm pain and SOB and found to be in AFib/RVR. Please see H&P for details. Hospital Course: As above Status at Discharge Functional status at discharge: independent ambulation Overall status at discharge: patient is back to baseline Time Spent with Patient Time attestation: Total time spent providing and/or coordinating discharge services:34 minutes Time spent: Greater than 30 minutes Exam Narrative: Exam Narrative: Gen Emerita SAAVEDRA lying semi-recumbent in bed Chest - diminished but clear breath sounds. CV - irregularly irregular; Tele showing AFib with controlled rate Abd - soft, ND/NT, +BS Ext - no pedal edema Psych - nml mood and affect Skin - Blistering violaceous rash to the left upper extremity and in the distribution of C6 dermatome. Decreased edema. ecchymosis noted throughout the dermatome including the lateral palm DS: Data Data Completed and Pending Labs on day of discharge: Labs from last 24 hours 10/13/19 10/13/19 10/13/19 04:49 04:49 04:49 WBC 11.9 H RBC 4.40 L Hgb 14.5 Hct 43.5 MCV 98.9 MCH 33.0 MCHC 33.3 RDW 15.9 H Plt Count 146 L MPV 11.7 H PT 32.9 H INR 3.3 Sodium 134 L Potassium 3.8 Chloride 99 Carbon Dioxide 29 BUN 43 H Creatinine 1.40 H Estim Creat Clear Calc 38 Estimated GFR 48 L Glucose 97 Calcium 7.8 L Total Bilirubin 1.1 AST 52 ALT 61 H Alkaline Phosphatase 57 Total Protein 5.0 L Albumin 2.6 L Preliminary micro results at discharge 10/10/19 11:30 Blood Culture - Preliminary Blood 10/10/19 11:30 Blo
[2019-10-13] MEDS: ACYCLOVIR 400 MG TABLET 800 MG PO ×2 (10:05→11:57)
[2019-10-13] MEDS: ESCITALOPRAM OXALATE 10 MG TABLET PO (10:06)
[2019-10-13] MEDS: GABAPENTIN 100 MG CAPSULE PO (10:06)
[2019-10-13] MEDS: METOPROLOL TARTRATE 50 MG TAB PO (10:06)
[2019-10-13] MEDS: ATORVASTATIN 40 MG TABLET PO (10:06)
--- NOTE | 2019-10-13 12:36 | P.PNCA_ITS ---
Progress Note: A&P Assessment and Plan (1) Atrial fibrillation with rapid ventricular response: Code(s): I48.91 - Unspecified atrial fibrillation Status: Acute Assessment and Plan: Now that he is more awake and alert he stated that he sees Dr. Mccabe as her regular cutting machine operator, will have a follow-up with him for regular cardiac care (2) CHF (congestive heart failure): Code(s): I50.9 - Heart failure, unspecified Status: Acute Subjective Date/time seen: 10/13/19 12:36 He feels okay today, no more arrhythmia no more shortness of breath leg swelling is better hand swelling is much better. Now that he is more awake and alert he stated that he sees Dr. Mccabe as her regular cutting machine operator, will have a follow-up with him for regular cardiac care
--- NOTE | 2019-10-15 10:34 | PCRCNOTE ---
COPD Post Discharge Phone Call Questions: Week 1 Unable to contact patient. No Answer 1. How are you feeling today? 2. Have you had any follow-up appointments since your discharge? Yes/No a. Were you able to attend all appointments? Yes/No b. Do you have any upcoming appointments? Yes/No c. If referred to pulmonary rehab, is it going well? Yes/No 3. Have you had success with smoking cessation? Yes/No a. If you signed a smoking cessation contract, have you been contacted by anyone to assist you? Yes/No 4. Did you go home with any new respiratory medications? Yes/No a. What medications were they? b. Were the possible side effects explained? Yes/No 5. Did you go home with new respiratory equipment (oxygen, CPAP, NIV, Bipap, vent, nebs? Yes/No a. Were you shown how to use them? Yes/No b. Are you comfortable using them? Yes/No c. If not, what issues are you having with the equipment? 6. Have you experienced an increase in any of the following since your discharge... a. Cough? Yes/No b. Mucus Production? Yes/No c. Shortness of Breath? Yes/No d. Tiredness and/or Lethargy? Yes/No 7. Have you had to go to an Urgent Care Center/Emergency Room since discharge? Yes/No 8. Did you discuss with patient how to handle medical emergencies? Yes/No Additional Comments:
== END 2019-10-13 12:20 | disposition home or self-care (01) | DRG 871 ==
LOC: ANHED 13:14 → ANHIMU 16:05
PROVIDERS: Internal Medicine; Admitting Provider Internal Medicine; Emergency Provider Emergency Medicine; PCP Family Medicine; Visit Provider Internal Medicine
DX: A41.9 Sepsis, unspecified organism (principal); J18.9 Pneumonia, unspecified organism; B01.9 Varicella without complication; N17.9 Acute kidney failure, unspecified; E87.2 Acidosis; E87.3 Alkalosis; B02.9 Zoster without complications; I48.91 Unspecified atrial fibrillation; I12.9 Hypertensive chronic kidney disease with stage 1 through stage 4 chronic kidney disease, or unspecified chronic kidney disease; N18.3 Chronic kidney disease, stage 3 (moderate); K21.9 Gastro-esophageal reflux disease without esophagitis; G47.33 Obstructive sleep apnea (adult) (pediatric); E78.5 Hyperlipidemia, unspecified; J43.9 Emphysema, unspecified; Z79.01 Long term (current) use of anticoagulants; Z95.5 Presence of coronary angioplasty implant and graft; Z90.49 Acquired absence of other specified parts of digestive tract; Z98.42 Cataract extraction status, left eye; Z98.41 Cataract extraction status, right eye; Z87.891 Personal history of nicotine dependence
CPT/HCPCS: 36415; 36600; 71046; 73130; 80048; 80053; 80307; 81001; 82805; 83605; 83735; 83880; 84100; 84484; 85025; 85027; 85610; 85730; 87040; 87804; 92610; 93005; 94640; 96365; 96366; 96375; 97161; 99285; A9270; C8929; J0456; J0696; J7030; Q9957

== ENCOUNTER 2019-12-26 19:00 | Inpatient (IN) | payer MEDICARE, SELFPAY ==
--- NOTE | ~2019-12-26 | XR_ITS ---
EXAMINATION: XR chest 1V portable DATE: 12/29/2019 05:58 INDICATION: Acute on chronic respiratory failure. TECHNIQUE: A single frontal view of the chest was obtained. COMPARISON: Chest single view 05/27/2020 FINDINGS: There are airspace and interstitial opacities involving all lung zones bilaterally. There i s mild scarring at the lung apices. There is a moderate-sized right pleural effusion. No pneumothorax . The heart size is normal. IMPRESSION: 1. Worsened diffuse lung disease, consistent with pulmonary edema versus pneumonia. 2. Stable moderate-sized right pleural effusion. Reviewed, dictated and finalized at location A. IMPRESSION: 1. Worsened diffuse lung disease, consistent with pulmonary edema versus pneumo shawna. 2. Stable moderate-sized right pleural effusion.
--- NOTE | ~2019-12-26 | XR_ITS ---
EXAMINATION: XR chest 1V portable EXAM DATE: 12/26/2019 21:21 INDICATION: Fall, shortness of breath. TECHNIQUE: Portable AP frontal chest x-ray was obtained. Comparison is made to prior examination from 10/17/2019. FINDINGS: There is a moderate-sized right-sided pleural effusion. Cardiomediastinal silhouette is nor mal. There is no pneumothorax suspected. Perihilar indistinct reticulation without confluent consolid ation. There are mild bony degenerative changes. IMPRESSION: 1. Moderate right pleural effusion. 2. Perihilar indistinct reticulation without confluent consolidation. Pulmonary edema or pneumonia no t excludable. Reviewed, dictated and finalized at location G. IMPRESSION: 1. Moderate right pleural effusion. 2. Perihilar indistinct reticulation without confluent consolidation. Pulmonary edema or pneumonia not excludable.
--- NOTE | ~2019-12-26 | CT_ITS ---
EXAMINATION: CT brain wo con INDICATION: Headache, altered mental status COMPARISON: None TECHNIQUE: Standard unenhanced head CT. The dose-length product (DLP) was 1362.00 mGy-cm. The mA was adjusted according to patient size. Iterative reconstruction technique was employed. FINDINGS: There are subtle hyperdense areas seen in the posterior parietal lobes which are concerning for small acute subarachnoid hemorrhages (images 41and 46). There are prominent bilateral extra-axia l fluid collections measuring CSF attenuation. No evidence of mass lesion. No evidence of acute infar ction. There is mild periventricular and subcortical hypodensity probably related to small vessel isc hemic disease. There is mild prominence of the sulci and ventricles related to cerebral atrophy. Intr acranial calcified cerebral atherosclerosis is noted. There is no mass effect or midline shift. Manuel es in the globes are likely from ocular lens surgery. There are changes of maxillary sinus surgery. There are skin alexandru in the posterior scalp. IMPRESSION: 1. Small foci of traumatic subarachnoid hemorrhage involving the posterior parietal lobes. 2. 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 3. Age-related findings. These findings were discussed with Dr. Miesha Lantigua MD in the Emergency Department at 2137 ho urs on 12/26/2019. Reviewed, dictated and finalized at location A. IMPRESSION: 1. Small foci of traumatic subarachnoid hemorrhage involving the posterior carlitos etal lobes. 2. 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 3. Age-related findings. These findings were discussed with Dr. Miesha Lantigua MD in the Emergency Department at 2137 hours on 12/26/2019.
--- NOTE | ~2019-12-26 | CT_ITS ---
EXAMINATION: CT cervical spine wo [facility] EXAM DATE: 12/26/2019 21:17 INDICATION: Fall, head injury. TECHNIQUE: Spiral CT of the cervical spine was performed without contrast. Axial images were reviewe d. Coronal and sagittal reformatted images were also reviewed. The dose-length product (DLP) for thi s examination was 522.89 mGy-cm. The exposure was tailored according to patient size (auto mA exposu re control), and iterative reconstruction (ASIR) was used as additional dose reduction technique. Com parison is made to prior examination from 09/19/2016. FINDINGS: There is severe left mid cervical facet arthropathy, moderate right-sided facet arthropathy . Moderate to severe disc disease C5-6 and 6-7. There is no evidence of acute cervical fracture. The odontoid process is intact. Pre-dens space is normal. Prevertebral soft tissue is normal. There a re no soft tissue abnormalities identified. There is no disc space widening or traumatic vertebral b reema subluxation suspected. Sizable right-sided pleural effusion. A detailed level by level evaluati on of spondylosis can be added as addendum if requested. IMPRESSION: 1. No acute cervical fracture. 2. Cervical spondylosis. 3. Sizable right pleural effusion. Reviewed, dictated and finalized at location G.
[2019-12-26 19:03] VITALS: BP 124/109; PULSE 137; RESP 27; TEMP 37.3; O2SAT 93
--- NOTE | 2019-12-26 19:43 | ECG_ITS ---
Measurements Intervals [place] Rate: 123 P: [place]: 0 QRS: 73 QRSD: 97 T: 27 QT: 327 QTc: 468 Interpretive Statements ATRIAL FIBRILLATION WITH RAPID VENTRICULAR RESPONSE DELAYED PRECORDIAL R/S TRANSITION LOW QRS VOLTAGE IN LIMB LEADS BORDERLINE T WAVE ABNORMALITY- INF/LAT LEADS BASELINE WANDER- I, II, III, AVR, AVL, AVF ABNORMAL ECG Electronically Signed On 12-27-2019 8:49:54 CDT by Zeke Stratton D.O.
[2019-12-26 19:54] VITALS: BP 107/68; PULSE 121; RESP 22; O2SAT 96
[2019-12-26 20:13] LABS: Basophils Percent Auto 0.3 % (0.2-1.2); Eosinophils Percent Auto 0.1 % (0-4.4); Hematocrit 42.4 % (42.0-52.0); Hemoglobin 13.7 g/dL (14.0-18.0); Immature Granulocyte Percent A 1.1 % (0-0.5); Lymphocytes Absolute Auto 0.53 K/mm3 (0.9-3.2); Lymphocytes Percent Auto 5.8 % (18.3-44.2); Mean Corpuscular HGB Conc 32.3 g/dl (32-36); Mean Corpuscular Hemoglobin 34.8 pg (26-34); Mean Corpuscular Volume 107.6 fl (80-100); Monocytes Absolute Auto 0.4 K/mm3 (0.1-0.6); Monocytes Percent Auto 4.3 % (2.6-8.5); Neutrophils Absolute Auto 8.1 K/mm3 (1.3-6.7); Neutrophils Percent Auto 88.4 % (45.5-73.1); Red Blood Count 3.94 M/mm3 (4.6-6.20); Red Cell Distribution Width 17.7 % (11.5-14.5); White Blood Count 9.2 K/mm3 (4.5-10.0)
[2019-12-26 20:23] LABS: Add Urine Microscopic? YES; Appearance Urine Clear (Clear); Bilirubin Urine Negative (Negative); Blood Urine 1+ (Negative); Color Urine Yellow (Yellow); Glucose Urine UA Negative (Negative); Ketones Urine Negative (Negative); Leukocyte Esterase Ur Negative LEU/UL (Negative); Nitrate Urine Negative (Negative); Protein Urine Negative (Negative); RBC Urine 51-75 /hpf (0-2); Specific Grav Ur 1.018 (1.001-1.035); Urobilinogen Urine Negative mg/dL (<2.0); WBC Urine 0-3 /hpf
[2019-12-26 20:25] LABS: Lactic Acid Reflex 3.5 mmol/L (0.7-2.1)
[2019-12-26 20:28] LABS: Alanine Aminotransferase 33 U/L (4-50); Albumin Level 2.8 g/dL (3.5-5.1); Alkaline Phosphatase 100 U/L (38-126); Aspartate Amino Transferase 45 U/L (17-59); Blood Urea Nitrogen 27 mg/dL (9-20); Calcium 7.7 mg/dL (8.4-10.2); Carbon Dioxide 24 mmol/L (22-30); Chloride 103 mmol/L (98-107); Estimated Glomerular Filt Rate 41; Glucose 113 mg/dL (75-110); Potassium 3.3 mmol/L (3.4-5.0); Sodium 136 mmol/L (137-145)
[2019-12-26 20:34] LABS: Ovalocytes 1+ (NORMAL); Platelet Clumps Present; Platelet Estimate Adequate (Adequate)
[2019-12-26 20:35] LABS: Burr Cells 1+ (NORMAL)
--- NOTE | 2019-12-26 20:50 | ED.AMS ---
HPI - Altered Mental Status General Chief Complaint: Altered Mental Status Stated Complaint: ams/fall Time Seen by Provider: 12/26/19 20:16 Source: patient, RN notes reviewed and old records reviewed Mode of arrival: EMS Limitations: altered mental status History of Present Illness HPI narrative: Patient is an 84-year-old male who presents to the emergency department via EMS with report of altered mental status. Patient is generally noted to be confused according to residential report, but has been more confused over the past couple of days. Patient had a fall at the residential this morning. He is denying any pain or injury. He does report a cough and shortness of breath. Patient is chronically on 3 L of oxygen. He denies any vomiting or diarrhea. MD complaint: altered mental status Onset (ago): day(s) Associated symptoms: cough and shortness of breath Related Data Home Medications Medication Instructions Recorded Confirmed Combivent Respimat 1 puff INHALATION Q6H PRN 10/10/19 12/27/19 atorvastatin 40 mg PO DAILY 10/10/19 12/27/19 escitalopram oxalate 10 mg PO DAILY 10/10/19 12/27/19 montelukast 10 mg PO HS 10/10/19 12/26/19 amino acids-protein hydrolys 1 ea PO BID 12/27/19 12/27/19 [Pro-Stat Sugar Free] amiodarone 200 mg PO DAILY 12/27/19 12/27/19 benzonatate [Tessalon Perles] 100 mg PO TID PRN 12/27/19 12/27/19 enoxaparin [Lovenox] 40 mg SUBCUT DAILY 12/27/19 12/27/19 finasteride 5 mg PO DAILY 12/27/19 12/27/19 fludrocortisone 0.1 mg PO DAILY 12/27/19 12/27/19 midodrine 5 mg PO TID 12/27/19 12/27/19 multivitamin with minerals 1 tablet PO DAILY 12/27/19 12/27/19 nitroglycerin [Nitrostat] 0.4 mg SUBLINGUAL Q5M PRN 12/27/19 12/27/19 polyethylene glycol 3350 [Miralax] 17 g PO DAILY PRN 12/27/19 12/27/19 sennosides [Senna Lax] 8.6 mg PO BID 12/27/19 12/27/19 Allergies Allergy/AdvReac Type Severity Reaction Status Date / Time No Known Allergies Allergy Verified 12/26/19 22:43 Review of Systems Review of Systems: All systems reviewed & are unremarkable except as noted in HPI and below Cardiovascular: Cardiovascular: Denies chest pain Respiratory: Respiratory: Reports cough and Reports dyspnea Gastrointestinal: Gastrointestinal: Denies diarrhea, Denies nausea and Denies vomiting PMFSH Past Medical History Medical History Anxiety Arm fracture In childhood Atrial fibrillation On chronic anticoagulation with Coumadin echocardiogram June 2017 demonstrating EF of 60-65%, moderate biatrial enlargement, normal RVSP of 32, mild mitral, pulmonic and tricuspid regurgitation CHF (congestive heart failure) Chronic kidney disease, stage III (moderate) With baseline creatinine I.3-1.4 Cirrhosis Community acquired pneumonia COPD with emphysema PFTs June 2017 demonstrated mild to moderate obstructive ventilatory defect without bronchodilator response and mildly decreased DLCO Depression Dyslipidemia Esophageal web Noted on EGD June [address] Lomas Essential hypertension GERD (gastroesophageal reflux disease) History of subarachnoid hemorrhage Obstructive sleep apnea Polysomnogram 07/2017 with CPAP of 7 non adherent to CPAP therapy SDH (subdural hematoma) Sepsis Shingles Varicella zoster Surgical History Surgical History H/O colonoscopy with polypectomy H/O heart artery stent History of back surgery Lumbar spine History of cardiac catheterization Hx of cholecystectomy Hx of nasal polypectomy With bilateral anterior and posterior ethmoid and maxillary antrostomy June [address] Dr[address] Mayfield Status post cataract extraction of both eyes with insertion of intraocular lens Family History Family History Father Lung disease Mother Osteoporosis Social History Social History (Reviewed 12/27/19 @ 04:02 by Lyle Daugherty
[2019-12-26] MEDS: LACTATED RINGERS 1,000 ML 999 ML IV CONT (21:16)
--- NOTE | 2019-12-26 21:55 | PC.NURSE ---
CALLED FRANCISCO KENNEDY LISTED PT POA AT [phone] [address] COTTON NOTIFIED
--- NOTE | 2019-12-26 21:57 | PC.NURSE ---
CALLED SANDY WESTON LISTED IN PT CHART AT [phone] STATES NUMBER HAS BEEN DISCONNECTED
--- NOTE | 2019-12-26 22:05 | PC.NURSE ---
CALLED RANJIT SINGH AT [facility]. DISCUSSED UNABLE TO GET AHOLD OF POA. STATES SHE ALSO COULD NOT GET AHOLD OF CONTACTS. STATES PT ONLY HAS FRIENDS NO FAMILY MEMBERS. RANJIT STATES SHE WILL CALL [employer] TO SEE IF PT HAS OTHER CONTACTS. DR COTTON NOTIFIED.
[2019-12-26 22:07] VITALS: BP 122/55; PULSE 125; RESP 28; O2SAT 99
[2019-12-26 22:13] LABS: Prothrombin Time 13.3 Seconds (11.1-14.7)
[2019-12-26 22:14] LABS: Partial Thromboplastin Time 25.8 SECONDS (22.3-36.8)
[2019-12-26 23:08] LABS: Reflex Lactic Acid Yes or No Add Lactic
[2019-12-26 23:19] VITALS: BP 102/70; PULSE 105; RESP 28; O2SAT 99
[2019-12-26 23:42] LABS: Lactic Acid 2.7 mmol/L (0.7-2.1)
[2019-12-27] VITALS (21 sets, daily range): BP systolic 107–142; BP diastolic 57–85; PULSE 75–128; RESP 18–34; TEMP 35.6–36.4; O2SAT 84–99; BMI 22.2
--- NOTE | 2019-12-27 03:28 | PM.IMHP ---
H&P: HPI History of Present Illness Chief complaint: Altered mental status++ Narrative: This is a 84 year old male who was just recently admitted this past week to [facility] and who presented to our hospital from the residential secondary to altered mental status. Apparently the patient did suffer a fall at the residential this morning. The patient is known to be chronically on 3L of oxygen. The patient was evaluated in the ER tonight and found to be in acute rapid atrial fibrillation. The patient does have a history of atrial fibrillation. CXR demonstrated perihilar indistinct reticulation without confluent consolidation. Brain CT that was obtained in the ER tonight was concerning for small acute subarachnoid hemorrhages. ER provider called and discussed the patients findings with Dr. Victoria, neurosurgery at [facility] as the patient was just admitted there this past week for his subarachnoic hemorrhage. CT from patient's prior hospitalization was reviewed and CT transmitted to their facility that was completed here at [facility]. Advised that patient subarachnoid hemorrhage was in the same location as what is noted on his CT tonight. Reports appearance of subarachnoid hemorrhage is improving and today CT scan would be consistent with resolving subarachnoid hemorrhage for which patient received treatment at their facility. Neurosurgery did not advise that the patient should be transferred back to [facility]. ON my encounter with the patient he has slurred speech and is does appear confused. He cannot reliably answer my questions at this time. The patient has been started on Cardizem IV for his rapid atrial fibrillation and tested for Covid-19. Review of Systems Review of Systems: ROS unobtainable: Yes unobtainable due to mental status PMFSH Past Medical History Medical History Anxiety Arm fracture In childhood Atrial fibrillation On chronic anticoagulation with Coumadin echocardiogram June 2017 demonstrating EF of 60-65%, moderate biatrial enlargement, normal RVSP of 32, mild mitral, pulmonic and tricuspid regurgitation CHF (congestive heart failure) Chronic kidney disease, stage III (moderate) With baseline creatinine I.3-1.4 Cirrhosis Community acquired pneumonia COPD with emphysema PFTs June 2017 demonstrated mild to moderate obstructive ventilatory defect without bronchodilator response and mildly decreased DLCO Depression Dyslipidemia Esophageal web Noted on EGD June [address] Lomas Essential hypertension GERD (gastroesophageal reflux disease) History of subarachnoid hemorrhage Obstructive sleep apnea Polysomnogram 07/2017 with CPAP of 7 non adherent to CPAP therapy SDH (subdural hematoma) Sepsis Shingles Varicella zoster Surgical History Surgical History H/O colonoscopy with polypectomy H/O heart artery stent History of back surgery Lumbar spine History of cardiac catheterization Hx of cholecystectomy Hx of nasal polypectomy With bilateral anterior and posterior ethmoid and maxillary antrostomy June [address] Dr. Mayfield Status post cataract extraction of both eyes with insertion of intraocular lens Family History Family History Father Lung disease Mother Osteoporosis Social History Social History Social History: Code status: DNR per patient request Primary care physician: Dr. Lyle Collazo Smoking packs per day: 1 Smoking cigarettes per day: 20.0 Years smoked: 50 Smoking pack-years: 50.00 Smoking status: Former smoker Tobacco type: cigarettes Alcohol intake: current Drinks per week: 14 Substance use: never Additional living arrangements comments: He lives alone and is not . Carlos
--- NOTE | 2019-12-27 03:38 | PC.NURSE ---
Attempted to reach both contacts listed and phone numbers do not work. Verified DPOA/contact Jb Roman and phone number with Aneta Berrios; no other numbers available.
[2019-12-27 03:48] LABS: HCO3 ABG 24.2 mEq/l (22.0-26.0); PCO2 ABG 30.1 mmHg (35.0-45.0); PO2 ABG 76.2 mmHg (80.0-100.0); pH ABG 7.524 (7.350-7.450)
[2019-12-27 03:49] LABS: Alveolar/Arterial O2 Gradient 462.6 mmHg; Base Excess ABG 2.3 mEq/l (+/-2.0); Device NON-REBREATHER MASK; Fractional Inspired Oxygen 80 %; Modified Allen's Test Pass; Oxygen Content ABG 18.2 %vol (16.0-22.0); Oxygen Saturation ABG 96.6 % (95.0-100.0); Oxyhemoglobin 93.6 % THb (90.0-100.0); PO2 FiO2 Ratio Arterial Blood 0.95 %; Site Drawn RIGHT RADIAL; Total Hemoglobin 13.8 g/dL (12.0-18.0)
--- NOTE | 2019-12-27 04:14 | ADMGEN ---
This patient, Jonatan Queen, was admitted to Intensive Care Unit-7. Patient/family oriented to hospital policies and general routines including ID bracelet, bed and alarms, visiting hours, pain management, procedures, bathroom and other care routines, personal items, smoking policy, room service/diet, and visiting hours. Valuables list has been completed. Information on how to activate the Rapid Response Team has been discussed. Patient/Family are encouraged to report perceived risks to care and to ask questions if they do not understand what they are told or what they should do.
[2019-12-27 06:21] LABS: Lactic Acid Reflex 2.4 mmol/L (0.7-2.1)
[2019-12-27 06:22] LABS: Blood Urea Nitrogen 29 mg/dL (9-20); Calcium 7.7 mg/dL (8.4-10.2); Carbon Dioxide 28 mmol/L (22-30); Chloride 102 mmol/L (98-107); Estimated CRCL calculation 32 ml/min; Estimated Glomerular Filt Rate 41; Glucose 132 mg/dL (75-110); Magnesium 1.8 mg/dL (1.6-2.3); Potassium 2.9 mmol/L (3.4-5.0); Sodium 138 mmol/L (137-145)
[2019-12-27 06:40] LABS: Troponin I 0.238 ng/mL (0.000-0.034)
[2019-12-27 06:52] LABS: Free T4 Free Thyroxine 2.17 ng/mL (0.78-2.19)
[2019-12-27 07:07] LABS: Basophils Percent Auto 0.2 % (0.2-1.2); Eosinophils Percent Auto 0.1 % (0-4.4); Hematocrit 40.6 % (42.0-52.0); Hemoglobin 13.3 g/dL (14.0-18.0); Immature Granulocyte Absolute 0.05 K/mm3 (0.00-0.031); Immature Granulocyte Percent A 0.6 % (0-0.5); Lymphocytes Absolute Auto 0.87 K/mm3 (0.9-3.2); Mean Corpuscular HGB Conc 32.8 g/dl (32-36); Mean Corpuscular Hemoglobin 34.8 pg (26-34); Mean Corpuscular Volume 106.3 fl (80-100); Mean Platelet Volume 10.5 fl (7.4-10.4); Monocytes Absolute Auto 0.5 K/mm3 (0.1-0.6); Monocytes Percent Auto 5.8 % (2.6-8.5); Neutrophils Absolute Auto 7.2 K/mm3 (1.3-6.7); Neutrophils Percent Auto 83.3 % (45.5-73.1); Platelet Count Result 185 k/mm3 (150-375); Red Blood Count 3.82 M/mm3 (4.6-6.20); Red Cell Distribution Width 17.7 % (11.5-14.5); White Blood Count 8.7 K/mm3 (4.5-10.0)
[2019-12-27] MEDS: SODIUM CHLORIDE 0.9% IV 1,000 ML 100 ML IV CONT (07:15)
--- NOTE | 2019-12-27 12:14 | PM.IMPN ---
Progress Note: A&P Assessment and Plan (1) Atrial fibrillation with rapid ventricular response: Code(s): I48.91 - Unspecified atrial fibrillation Status: Acute Assessment and Plan: Patient on IV diltiazem drip with heart rate controlled on review of telemetry on 12/27/2019. Remains in atrial fibrillation. Patient normally on oral amiodarone at nursing facility. With patient more awake and able to swallow water, will resume oral amiodarone. Discontinue IV diltiazem. With recent subarachnoid hemorrhage, patient is not a candidate for anticoagulation. Will cancel echocardiogram as he did have an echocardiogram done in October 2019 60-65% and right ventricular chamber dimension mildly enlarged. Free T4 is within normal range. Will continue to monitor. (2) Hypokalemia: Code(s): E87.6 - Hypokalemia Status: Acute Assessment and Plan: Potassium 2.9 this morning with IV replacement given. Will continue to monitor replace as needed. (3) Acute encephalopathy: Code(s): G93.40 - Encephalopathy, unspecified Status: Acute Assessment and Plan: Known to have baseline dementia. Patient much more awake today. Not wanting to keep oxygen on but has been keeping on with use of mask overlying non-rebreather. 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 Will continue to monitor with other treatments. (4) Sepsis: Qualifiers: Sepsis acute organ dysfunction status: without acute organ dysfunction Sepsis type: sepsis due to unspecified organism Qualified Code(s): A41.9 - Sepsis, unspecified organism Code(s): A41.9 - Sepsis, unspecified organism Status: Acute Assessment and Plan: Criteria met on admission. Blood cultures pending. Chest x-ray on admission moderate right pleural effusion (not new per custodial report) and perihilar indistinct reticulation without complete consolidation. WBC is normal. Will continue IV azithromycin and ceftriaxone while awaiting culture results. Still requiring high flow oxygen at 15 L. Will continue to monitor. (5) Acute on chronic renal failure: Qualifiers: Acute renal failure type: unspecified Chronic kidney disease stage: stage 3 (moderate) Qualified Code(s): N17.9 - Acute kidney failure, unspecified; N18.3 - Chronic kidney disease, stage 3 (moderate) Code(s): N17.9 - Acute kidney failure, unspecified; N18.9 - Chronic kidney disease, unspecified Status: Acute Assessment and Plan: Remains unchanged at 1.60 today but may be his new baseline. Will continue IV fluids. Will continue to monitor. (6) Suspected COVID-19 virus infection: Code(s): R68.89 - Other general symptoms and signs Status: Acute Assessment and Plan: COVID-19 testing initiated with results available this afternoon and negative. Discontinue isolation. (7) Subarachnoid hemorrhage: Code(s): I60.9 - Nontraumatic subarachnoid hemorrhage, unspecified Status: Acute Assessment and Plan: Acute subarachnoid hemorrhage which has not changed on repeat CT head tonight. Neurosurgery at [place] did not feel the patient needed to be transferred tonight. Will continue to monitor. (8) COPD with emphysema: Qualifiers: Emphysema type: unspecified Qualified Code(s): J43.9 - Emphysema, unspecified Code(s): J43.9 - Emphysema, unspecified Status: Chronic Assessment and Plan: On oxygen as noted above. Resume home Combivent. (9) GERD (gastroesophageal reflux disease): Qualifiers: Esophagitis presence: esophagitis presence not specified Qualified Code(s): K21.9 - Gastro-esophageal reflux disease without esophagitis Code(s): K21.9 - Gastro-esophageal reflux disease without esophagitis Status: Chronic Assessment and Plan: Will giv
[2019-12-27] MEDS: AMIODARONE HCL 200 MG TABLET PO (12:47)
[2019-12-27 13:34] LABS: SARS-CoV-2 RNA PCR Negative
--- NOTE | 2019-12-27 17:49 | PC.NURSE ---
This patient, Jonatan Queen, was received from ICU-7 on 12/27/19 at 1749. Personal belongings list checked and signed. Patient/family oriented to unit policies and routines
--- NOTE | 2019-12-27 18:12 | PC.NURSE ---
This patient, Jonatan Queen, was transferred to [facility] on 12/27/19 at 1800. Personal belongings sent with patient. Belongings list checked. Report given to Corazon SINGH. Appropriate documentation sent with patient.
[2019-12-27] MEDS: MONTELUKAST SODIUM 10 MG TABLET PO (22:53)
[2019-12-28] VITALS (18 sets, daily range): BP systolic 139–177; BP diastolic 68–94; PULSE 79–115; RESP 18–22; TEMP 35.9–36.4; O2SAT 93–98
[2019-12-28 00:09] LABS: Potassium 3.2 mmol/L (3.4-5.0)
[2019-12-28 00:13] LABS: Lactic Acid Reflex 2.3 mmol/L (0.7-2.1)
[2019-12-28] MEDS: SODIUM CHLORIDE 0.9% IV 1,000 ML 75 ML IV CONT ×2 (02:07→15:50)
[2019-12-28 02:59] LABS: Reflex Lactic Acid Yes or No Add Lactic
[2019-12-28 03:11] LABS: Hematocrit 38.1 % (42.0-52.0); Hemoglobin 12.3 g/dL (14.0-18.0); Mean Corpuscular HGB Conc 32.3 g/dl (32-36); Mean Corpuscular Hemoglobin 34.9 pg (26-34); Mean Corpuscular Volume 108.2 fl (80-100); Mean Platelet Volume 10.7 fl (7.4-10.4); Platelet Count Result 170 k/mm3 (150-375); Red Blood Count 3.52 M/mm3 (4.6-6.20); Red Cell Distribution Width 17.7 % (11.5-14.5); White Blood Count 7.9 K/mm3 (4.5-10.0)
[2019-12-28 03:29] LABS: Lactic Acid 1.6 mmol/L (0.7-2.1)
[2019-12-28 03:30] LABS: Blood Urea Nitrogen 31 mg/dL (9-20); Calcium 7.7 mg/dL (8.4-10.2); Carbon Dioxide 28 mmol/L (22-30); Chloride 105 mmol/L (98-107); Estimated CRCL calculation 37 ml/min; Estimated Glomerular Filt Rate 48; Glucose 99 mg/dL (75-110); Potassium 3.4 mmol/L (3.4-5.0); Sodium 136 mmol/L (137-145)
--- NOTE | 2019-12-28 08:12 | PCRCNOTE ---
Spiriva not given, pt. unable to do inhaler properly at this time.
[2019-12-28] MEDS: AMIODARONE HCL 200 MG TABLET PO (09:18)
[2019-12-28] MEDS: PANTOPRAZOLE 40 MG TABLET PO (09:19)
[2019-12-28] MEDS: ATORVASTATIN 40 MG TABLET PO (09:19)
[2019-12-28] MEDS: ESCITALOPRAM OXALATE 10 MG TABLET PO (09:19)
--- NOTE | 2019-12-28 10:52 | PM.IMPN ---
Progress Note: A&P Assessment and Plan (1) Atrial fibrillation with rapid ventricular response: Code(s): I48.91 - Unspecified atrial fibrillation Status: Acute Assessment and Plan: Initially started on IV diltiazem on admission but discontinued on 12/27/2019 with heart rate controlled. Now on home oral amiodarone. Telemetry reviewed on 12/28/2019 with atrial fibrillation with heart rate still increasing at times. As patient does have adequate blood pressure, will add low-dose Coreg and monitor. No echocardiogram done as patient did have 1 done in October 2019 with EF 60-65% and right ventricular chamber dimension mildly enlarged. Free T4 is within normal limits. With subarachnoid hemorrhage and chronic subdural hematomas, patient is not a candidate for anticoagulation. Will continue to monitor. Anticipated patient [facility] discharge. (2) Hypokalemia: Code(s): E87.6 - Hypokalemia Status: Acute Assessment and Plan: Potassium up to 3.4 today. Will give additional oral replacement. Will continue to monitor and replace as needed. (3) Respiratory failure: Qualifiers: Chronicity: acute on chronic Respiratory failure complication: hypoxia Qualified Code(s): J96.21 - Acute and chronic respiratory failure with hypoxia Code(s): J96.90 - Respiratory failure, unspecified, unspecified whether with hypoxia or hypercapnia Status: Acute Assessment and Plan: Acute on chronic with patient normally on 3 L oxygen at home. Requiring higher level of oxygen as noted. COVID-19 testing is negative. Initial chest x-ray with pulmonary edema and pneumonia unable to be excluded. Clinically not clear if having pneumonia but does not appear to be fluid overloaded. Will repeat chest x-ray tomorrow while continuing IV antibiotics. (4) Acute encephalopathy: Code(s): G93.40 - Encephalopathy, unspecified Status: Acute Assessment and Plan: Known to have baseline dementia. No significant improvement from yesterday. 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 Will continue to monitor mental status with treatment of acute issues as noted below. (5) Sepsis: Qualifiers: Sepsis acute organ dysfunction status: without acute organ dysfunction Sepsis type: sepsis due to unspecified organism Qualified Code(s): A41.9 - Sepsis, unspecified organism Code(s): A41.9 - Sepsis, unspecified organism Status: Acute Assessment and Plan: Criteria met on admission. Blood cultures with 1 of 2 showing gram-positive cocci in clusters. Urine culture now obtained and pending. Chest x-ray on admission moderate right pleural effusion (not new per senior living report) and perihilar indistinct reticulation without complete consolidation. WBC remains normal. Will add IV vancomycin to IV azithromycin and ceftriaxone while awaiting final blood culture results. Remains on high-flow oxygen at 8 L this morning but back up to 15 L this afternoon. Will continue to monitor. (6) Acute on chronic renal failure: Qualifiers: Acute renal failure type: unspecified Chronic kidney disease stage: stage 3 (moderate) Qualified Code(s): N17.9 - Acute kidney failure, unspecified; N18.3 - Chronic kidney disease, stage 3 (moderate) Code(s): N17.9 - Acute kidney failure, unspecified; N18.9 - Chronic kidney disease, unspecified Status: Acute Assessment and Plan: Creatinine better at 1.40 today which does appear to be within his normal range based on labs here. Continue IV fluids. Will continue to monitor. (7) Urinary retention: Code(s): R33.9 - Retention of urine, unspecified Status: Acute Assessment and Plan: Patient noted to have urinary retention this afte
[2019-12-28] MEDS: carvediloL 3.125 MG TABLET PO ×2 (11:34→21:00)
[2019-12-28 15:26] LABS: Add Urine Microscopic? YES; Appearance Urine Clear (Clear); Bilirubin Urine Negative (Negative); Blood Urine 1+ (Negative); Color Urine Yellow (Yellow); Glucose Urine UA Negative (Negative); Ketones Urine Negative (Negative); Leukocyte Esterase Ur Negative LEU/UL (NEGATIVE); Mucus Urine Rare /lpf; Nitrate Urine Negative (Negative); Protein Urine 1+ mg/dL (Negative); Specific Grav Ur 1.026 (1.001-1.035); Squamous Epithelial Cell Urine Rare /hpf (Few); Urobilinogen Urine Negative mg/dL (<2.0)
[2019-12-28] MEDS: POTASSIUM CHLORIDE 20 MEQ TABLET 40 MEQ PO (17:46)
[2019-12-28] MEDS: LEVALBUTEROL HFA (*SP) 15 GM INHALER 2 PUFF INHALATION (20:59)
[2019-12-28] MEDS: MONTELUKAST SODIUM 10 MG TABLET PO (21:00)
[2019-12-29] VITALS (27 sets, daily range): BP systolic 100–138; BP diastolic 58–98; PULSE 87–134; RESP 20–28; TEMP 36.1–36.7; O2SAT 92–100
[2019-12-29] MEDS: LEVALBUTEROL HFA (*SP) 15 GM INHALER 2 PUFF INHALATION (02:36)
[2019-12-29 04:54] LABS: Hematocrit 38.9 % (42.0-52.0); Hemoglobin 12.6 g/dL (14.0-18.0); Mean Corpuscular HGB Conc 32.4 g/dl (32-36); Mean Corpuscular Hemoglobin 35.3 pg (26-34); Mean Platelet Volume 11.1 fl (7.4-10.4); Platelet Count Result 185 k/mm3 (150-375); Red Blood Count 3.57 M/mm3 (4.6-6.20); Red Cell Distribution Width 17.4 % (11.5-14.5); White Blood Count 8.6 K/mm3 (4.5-10.0)
[2019-12-29 05:08] LABS: Blood Urea Nitrogen 29 mg/dL (9-20); Calcium 7.8 mg/dL (8.4-10.2); Carbon Dioxide 22 mmol/L (22-30); Chloride 109 mmol/L (98-107); Estimated CRCL calculation 37 ml/min; Estimated Glomerular Filt Rate 48; Glucose 108 mg/dL (75-110); Magnesium 1.9 mg/dL (1.6-2.3); Potassium 4.1 mmol/L (3.4-5.0); Sodium 137 mmol/L (137-145)
[2019-12-29] MEDS: SODIUM CHLORIDE 0.9% IV 1,000 ML 75 ML IV CONT ×2 (06:11→18:09)
[2019-12-29] MEDS: ATORVASTATIN 40 MG TABLET PO (08:57)
[2019-12-29] MEDS: PANTOPRAZOLE 40 MG TABLET PO (08:58)
[2019-12-29] MEDS: carvediloL 3.125 MG TABLET PO ×2 (08:58→21:00)
[2019-12-29] MEDS: AMIODARONE HCL 200 MG TABLET PO (08:59)
[2019-12-29] MEDS: ESCITALOPRAM OXALATE 10 MG TABLET PO (08:59)
--- NOTE | 2019-12-29 09:06 | PCRCNOTE ---
0840 Pt found on 8L NRBM and 8L HFNC. Pt was very confused. The NRMB was increased to 10L, HFNC was removed. Dr. Magdaleno called and changed inhalers to nebulizers.
[2019-12-29] MEDS: IPRATROPIUM BR 0.02% INH SOLN 0.5 MG/2.5 ML VIAL INHALATION ×3 (09:08→19:57)
--- NOTE | 2019-12-29 19:05 | PM.IMPN ---
Progress Note: A&P Assessment and Plan (1) Atrial fibrillation with rapid ventricular response: Code(s): I48.91 - Unspecified atrial fibrillation Status: Acute Assessment and Plan: Initially started on IV diltiazem on admission but discontinued on 12/27/2019 with heart rate controlled. Now on home oral amiodarone. Telemetry reviewed on 12/28/2019 with atrial fibrillation with heart rate still increasing at times. As patient does have adequate blood pressure, will add low-dose Coreg and monitor. No echocardiogram done as patient did have 1 done in October 2019 with EF 60-65% and right ventricular chamber dimension mildly enlarged. Free T4 is within normal limits. With subarachnoid hemorrhage and chronic subdural hematomas, patient is not a candidate for anticoagulation. Will continue to monitor. Anticipated patient [facility] upon discharge. (2) Hypokalemia: Code(s): E87.6 - Hypokalemia Status: Acute Assessment and Plan: Potassium up to 3.4 today. Will give additional oral replacement. Will continue to monitor and replace as needed. (3) Respiratory failure: Qualifiers: Chronicity: acute on chronic Respiratory failure complication: hypoxia Qualified Code(s): J96.21 - Acute and chronic respiratory failure with hypoxia Code(s): J96.90 - Respiratory failure, unspecified, unspecified whether with hypoxia or hypercapnia Status: Acute Assessment and Plan: Acute on chronic with patient normally on 3 L oxygen at home. Requiring higher level of oxygen as noted. COVID-19 testing is negative. Initial chest x-ray with pulmonary edema and pneumonia unable to be excluded. Clinically not clear if having pneumonia but does not appear to be fluid overloaded. Will repeat chest x-ray tomorrow while continuing IV antibiotics. (4) Acute encephalopathy: Code(s): G93.40 - Encephalopathy, unspecified Status: Acute Assessment and Plan: Known to have baseline dementia. No significant improvement from yesterday. 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 Will continue to monitor mental status with treatment of acute issues as noted below. Date of Service: 12/29/2019. Admitted with atrial fibrillation with RVR, sepsis, COVID-19 suspected rate is negative, altered mental status. Recent subarachnoid hemorrhage. Has been fidgety per sitter. Unable to provide detailed review of symptom he does appear in pain, because of patient altered mental status and history of cerebral hemorrhage I called patient's POA and provided the condition of the patient unable to give the patient pain medication as he is quite confused and this may make worse with pain medication, did request to consider comfort care or hospice for the patient, the POA will discuss with the day care assistant and will decide further management (5) Sepsis: Qualifiers: Sepsis type: sepsis due to unspecified organism Sepsis acute organ dysfunction status: without acute organ dysfunction Qualified Code(s): A41.9 - Sepsis, unspecified organism Code(s): A41.9 - Sepsis, unspecified organism Status: Acute Assessment and Plan: Criteria met on admission. Blood cultures with 1 of 2 showing gram-positive cocci in clusters. Urine culture now obtained and pending. Chest x-ray on admission moderate right pleural effusion (not new per [facility] report) and perihilar indistinct reticulation without complete consolidation. WBC remains normal. Will add IV vancomycin to IV azithromycin and ceftriaxone while awaiting final blood culture results. Remains on high-flow oxygen at 8 L this morning but back up to 15 L this afternoon. Will continue to monitor. (6) Acute on chronic renal failure: Qualifiers: Acute
[2019-12-29] MEDS: MONTELUKAST SODIUM 10 MG TABLET PO (21:00)
[2019-12-30] VITALS (13 sets, daily range): BP systolic 134–143; BP diastolic 73–95; PULSE 99–133; RESP 22–26; TEMP 36.1–36.7; O2SAT 88–92
[2019-12-30] MEDS: IPRATROPIUM BR 0.02% INH SOLN 0.5 MG/2.5 ML VIAL INHALATION ×2 (01:48→08:48)
[2019-12-30] MEDS: LORAZEPAM INJ 2 MG/ML VIAL 1 MG IV PUSH (03:45)
[2019-12-30 04:43] LABS: Basophils Percent Auto 0.3 % (0.2-1.2); Eosinophils Percent Auto 0.1 % (0-4.4); Hematocrit 36.4 % (42.0-52.0); Hemoglobin 11.3 g/dL (14.0-18.0); Immature Granulocyte Absolute 0.05 K/mm3 (0.00-0.031); Immature Granulocyte Percent A 0.6 % (0-0.5); Lymphocytes Absolute Auto 0.81 K/mm3 (0.9-3.2); Lymphocytes Percent Auto 10.2 % (18.3-44.2); Mean Corpuscular Hemoglobin 34.1 pg (26-34); Mean Platelet Volume 11.3 fl (7.4-10.4); Monocytes Absolute Auto 0.4 K/mm3 (0.1-0.6); Monocytes Percent Auto 5.2 % (2.6-8.5); Neutrophils Absolute Auto 6.6 K/mm3 (1.3-6.7); Neutrophils Percent Auto 83.6 % (45.5-73.1); Platelet Count Result 191 k/mm3 (150-375); Red Blood Count 3.31 M/mm3 (4.6-6.20); Red Cell Distribution Width 17.5 % (11.5-14.5); White Blood Count 7.9 K/mm3 (4.5-10.0)
[2019-12-30 05:00] LABS: Blood Urea Nitrogen 35 mg/dL (9-20); Carbon Dioxide 24 mmol/L (22-30); Chloride 110 mmol/L (98-107); Estimated CRCL calculation 27 ml/min; Estimated Glomerular Filt Rate 34; Glucose 123 mg/dL (75-110); Potassium 4.3 mmol/L (3.4-5.0); Sodium 140 mmol/L (137-145)
--- NOTE | 2019-12-30 06:38 | P.CDI_ITS ---
CDI Query Clarification Request Two queries: 1) * Pneumonia documented by EDP. * CXR 12/28 impression: worsened diffuse lung disease, consistent with pulmonary edema versus pneumonia * No further mention of Pneumonia by hospitalists. Please clarify if pneumonia was ruled in or ruled out. 2) * Encephalopathy has been documented Please clarify type of encephalopathy: * Metabolic * Toxic * Anoxic * Hypertensive * Hepatic * Other * Unable to determine
--- NOTE | 2019-12-30 06:38 | WPDCDIQUERY2 ---
CDI Query Clarification Request Two queries: 1) Pneumonia documented by EDP. CXR 12/28 impression: worsened diffuse lung disease, consistent with pulmonary edema versus pneumonia No further mention of Pneumonia by hospitalists. Please clarify if pneumonia was ruled in or ruled out. 2) Encephalopathy has been documented Please clarify type of encephalopathy: Metabolic Toxic Anoxic Hypertensive Hepatic Other Unable to determine
--- NOTE | 2019-12-30 08:33 | PCSTNOTE ---
Attempted bedside swallow evaluation this am; pt was not able to be woke (had ativan at 4am). ST will try evaluation again this afternoon.
[2019-12-30] MEDS: LORAZEPAM INJ 2 MG/ML VIAL 0.5 MG IV PUSH (09:57)
[2019-12-30] MEDS: MORPHINE SULFATE 2 MG/ML INJ IV PUSH (10:01)
--- NOTE | 2019-12-30 11:15 | PC.NURSE ---
Patient time of 11:11. Dr hernandez present in the room. Carolina Malhotra RN notified immediately. Patient SONG Cheung Jb Roman notified by phone.
--- NOTE | 2019-12-30 11:20 | P.DN_ITS ---
Discharge Sum: Prov Provider Primary care physician: Lyle Collazo, Admitting provider: Destiny Paulson DO Discharge Sum: Summary Date and Time Date of admission: 12/27/19 01:39 Date of : 12/30/19 Time of : 11:11 Summary Details: Known to have baseline dementia. No significant improvement from yesterday. 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 Will continue to monitor mental status with treatment of acute issues as noted below. Date of Service: 12/29/2019. Admitted with atrial fibrillation with RVR, sepsis, COVID-19 suspected rate is negative, altered mental status. Recent subarachnoid hemorrhage. Has been fidgety per sitter. Unable to provide detailed review of symptom he does appear in pain, because of patient altered mental status and history of cerebral hemorrhage I called patient's POA and provided the condition of the patient unable to give the patient pain medication as he is quite confused and this may make worse with pain medication, did request to consider comfort care or hospice for the patient, the POA will discuss with the respiratory care technician and will decide further management Today patient POA did agree with comforte care and withdrawl of treatment, patient was kept comfortable, and on 12/30/2019 at 11:11 ( Additional Data Confirmation of as documented by pronouncing clinician: no pulse, no respirations, no heart sounds and pupils fixed and dilated Family: not available Additional persons at bedside: customer service advisor Attending/PCP notified?: Yes Attending physician: Destiny Paulson, DO Was code activated?: No Autopsy requested?: No voucher examiner notified?: Yes Organ bank notified?: Yes Advance directives: Yes Hospice patient?: No
--- NOTE | 2019-12-30 11:40 | PC.NURSE ---
Notified [facility] of Patient at 11:35. Spoke with Vianey Ferguson Admission Coordinator
== END 2019-12-30 11:11 | disposition expired | DRG 871 ==
LOC: ANHED 20:16 → ANHICU 12-27 01:58 → ANHIMU 12-29 07:56 → ANHICU 01-01 09:43 → ANHIMU 01-01 09:43
PROVIDERS: Emergency Medicine; Hospitalist; Admitting Provider Family Medicine; Emergency Provider Emergency Medicine; PCP Family Medicine; Visit Provider Family Medicine
DX: A41.1 Sepsis due to other specified staphylococcus (principal); J18.9 Pneumonia, unspecified organism; J96.21 Acute and chronic respiratory failure with hypoxia; I13.0 Hypertensive heart and chronic kidney disease with heart failure and stage 1 through stage 4 chronic kidney disease, or unspecified chronic kidney disease; G93.40 Encephalopathy, unspecified; N17.9 Acute kidney failure, unspecified; S06.6X9D Traumatic subarachnoid hemorrhage with loss of consciousness of unspecified duration, subsequent encounter; Z20.828 Contact with and (suspected) exposure to other viral communicable diseases; I48.91 Unspecified atrial fibrillation; Z99.81 Dependence on supplemental oxygen; F41.8 Other specified anxiety disorders; Z79.01 Long term (current) use of anticoagulants; N18.3 Chronic kidney disease, stage 3 (moderate); I50.9 Heart failure, unspecified; K74.60 Unspecified cirrhosis of liver; J43.9 Emphysema, unspecified; G47.33 Obstructive sleep apnea (adult) (pediatric); W19.XXXD Unspecified fall, subsequent encounter; F32.9 Major depressive disorder, single episode, unspecified; Z86.010 Personal history of colon polyps; Z95.5 Presence of coronary angioplasty implant and graft; Z66 Do not resuscitate; Z87.891 Personal history of nicotine dependence; E87.6 Hypokalemia; K21.9 Gastro-esophageal reflux disease without esophagitis; E78.5 Hyperlipidemia, unspecified; R33.9 Retention of urine, unspecified; Z90.49 Acquired absence of other specified parts of digestive tract; Z98.42 Cataract extraction status, left eye; Z98.41 Cataract extraction status, right eye
CPT/HCPCS: 36415; 36600; 51701; 70450; 71045; 72125; 80048; 80053; 81001; 82805; 83605; 83735; 84132; 84439; 84484; 85025; 85027; 85610; 85730; 87040; 87077; 87086; 87186; 87635; 87804; 93005; 94640; 96361; 96365; 96366; 96368; 96375; 99285; A9270; J0131; J0456; J0696; J2060; J2270; J2543; J3370; J3480; J7030; J7120; U0003